=== PATIENT | male | born 1955 | race Caucasian/White ===

== ENCOUNTER 2016-04-24 21:17 | Emergency (ER) | payer MEDICARE, MEDICAID ==
[2016-04-24 21:41] VITALS: BP 128/88
[2016-04-24 22:20] LABS: HEMATOCRIT 40.1 % (40.0-52.0); HEMOGLOBIN 12.6 g/dL (14.0-18.0); MEAN CORPUSCULAR HEMOGLOBIN 29.5 pg (26.0-32.0); MEAN CORPUSCULAR HGB CONC 31.4 g/dL (32.0-36.0); MEAN CORPUSCULAR VOLUME 93.9 fL (78.0-93.0); RDW CV 14.3 % (10.0-15.0); RED BLOOD CELL COUNT 4.27 x10^6/uL (4.5-6.0)
[2016-04-24 22:29] LABS: BAND PERCENT MAN 1 % (0-6); EOSINOPHILS PERCENT MAN 1 % (0-4); SEG NEUTROPHILS PERCENT MAN 64 % (50-80); TOTAL CELLS COUNTED 100
[2016-04-24] MEDS ORDERED: Metoclopramide 10 MG/2 ML SDV IM ONE (23:06)
[2016-04-24] MEDS ORDERED: Ondansetron 4 MG Tab.DIS PO ONE (23:07)
--- NOTE | 2016-05-03 20:34 | ER ---
Date of Service: 04/24/2016 SUBJECTIVE: The patient presents to the emergency room via EMS. The patient is a resident at the [facility]. Staff stated that they went into his room and noticed a "spot of blood" on the front of patient's gown. They stated that the patient had not experienced any falls. They were concerned that he has a "bowel obstruction." They did assess him and stated that they did not hear any bowel sounds. The patient again did not experience any trauma to their knowledge. He is nonverbal due to severe dementia and was unable to relate any pertinent past Medical History. PAST MEDICAL HISTORY: 1. Closed head injury. 2. Dementia. 3. Quadriplegia. 4. Dysphagia. 5. Bipolar disorder. 6. Enuresis. 7. Anxiety disorder. 8. Urge incontinence. 9. Delusional disorders. 10.Scoliosis. 11.Unspecified hearing loss. 12.History of hyponatremia. 13.Schizoaffective disorder, bipolar type. MEDICATIONS: Please see MAR. ALLERGIES: Red food dye. REVIEW OF SYSTEMS: Unobtainable. PHYSICAL EXAMINATION: General: This is a 61-year-old male patient, who is in no acute distress. Vital Signs: Blood pressure is 128/88, respiratory rate is 20, O2 saturations 93%, temperature is 37.1. Skin: Warm, pink, and dry. HEENT: Head is normocephalic, atraumatic. He does have evidence of dried blood in his left naris consistent with epistaxis. It is not actively bleeding. Mouth, oral mucosa is moist. No evidence of any blood in the oropharynx. Neck: Supple without masses. There is no lymphadenopathy. Lungs: Clear to auscultation. Heart: Regular rate and rhythm. Abdomen: Obese and nontender. There are no masses noted. His bowel sounds are active. A fecal occult blood was performed and was negative. The patient did become somewhat nauseated after he had been moved around in the emergency room, but did not vomit. LABORATORY DATA: Fecal occult blood was performed and was negative. EMERGENCY ROOM COURSE: The patient was given Zofran 4 mg IV and Reglan 10 mg IV. He had no further vomiting and again was unable to recall if he had any nausea due to his history of head injury and dementia. ASSESSMENT: Epistaxis, resolved. PLAN: The patient was subsequently transferred back to the [facility]. They are to return if the patient develops any epistaxis that does not resolve, if he begins to vomit, if he develops any difficulties with breathing or other worrisome signs or symptoms. All questions were answered. MWK: 05/03/2016 15:01:38 MODL: 05/03/2016 20:29:37 /[id number]
== END 2016-04-24 23:20 ==
LOC: VM.ED 21:17
DX: R04.0 Epistaxis (principal)
CPT/HCPCS: 36415; 82272; 82274; 85025; 96372; 99285; A9270; J2765; 99283-GF

== ENCOUNTER 2016-06-26 13:55 | Inpatient (IN) | payer MEDICARE, MEDICAID ==
[2016-06-26] MEDS ORDERED: Piperacillin/Tazobactam 3.375 GM in Sodium Chloride 0.9% 100 ML IV SCH (14:15)
[2016-06-26] MEDS: Sodium Chloride 0.9% 1,000 ML IV SCH (15:50)
[2016-06-26] MEDS ORDERED: Calcium Carbonate 750 MG Tab.Chew PO PRN (16:29)
[2016-06-26] MEDS ORDERED: Acetaminophen 325 MG Tab PO PRN (16:29)
[2016-06-26] MEDS ORDERED: guaiFENesin 100 MG/5 ML Soln 10 ML UD Cup PO PRN (16:29)
[2016-06-26] MEDS ORDERED: Bisacodyl 5 MG Tab PO PRN (16:29)
[2016-06-26] MEDS: Piperacillin/Tazobactam 2.25 GM in Sodium Chloride 0.9% 100 ML IV SCH ×2 (16:30→22:02)
--- NOTE | 2016-06-26 16:44 | PCM.HP ---
H&P History of Present Illness - General Date of Service: 06/26/16 Admit Problem/Dx: Admission Diagnosis/Problem Admission Diagnosis/Problem Aspiration pneumonia Source of Information: [facility] records, Other (half-way staff) History Limitations: Reports: Altered mental status (patient cannot give any history) - History of Present Illness Initial Comments - Free Text/Narative: Mr. 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 He was hospitalized at the end of April for what was felt to be aspiration pneumonia versus UTI. snf staff with him today do not feel that he has ever gotten back to his baseline after that hospitalization and that he has actually become increasingly weak. He is having more difficulty holding his head up straight and they were concerned that he may have had a stroke. There has been no acute neurologic change that prompted this concern but, rather, it persists from his last hospitalization. He has long-standing dysarthria but this has been worse lately. He has not been eating and drinking as well as usual. Over the past couple days, he has developed a fever with T-max measured at 100.5. He has also appeared to be short of breath and has been requiring more oxygen during the day than usual. He always requires oxygen at night. He has not been noted to be coughing and has had no notable vomiting or diarrhea. He has chronic urinary incontinence with no acute changes. The patient is unable to participate in the history due to his history of TBI and dysarthria. - Related Data Allergies/Adverse Reactions: Allergies Allergy/AdvReac Type Severity Reaction Status Date / Time red dye Allergy Cannot Verified 06/26/16 15:16 Remember Home Medications: Home Meds Acetaminophen [Tylenol] 650 mg PO Q4H PRN 04/24/16 [History] Bisacodyl [Dulcolax] 5 mg PO DAILY PRN 04/24/16 [History] Divalproex Sodium 250 mg PO BID 04/24/16 [History] Divalproex Sodium 500 mg PO BID 04/24/16 [History] [place] Carbonate [Lithobid] 450 mg PO DAILY 04/24/16 [History] Oxybutynin 5 mg PO DAILY 04/24/16 [History] Propranolol HCl [Propranolol] 10 mg PO QID 04/24/16 [History] Calcium Carbonate [Tums] 1,000 mg PO QID PRN 05/18/16 [History] Multivit-Min/FA/Lycopene/Lut [Centrum Silver Tablet] 1 tab PO DAILY 05/18/16 [ History] Polyethylene Glycol 3350 [MiraLAX] 17 gm PO DAILY 05/18/16 [History] Terbinafine [LamISIL AT 1% Crm] 0.5 gm TOP BID PRN 05/18/16 [History] guaiFENesin [Adult Tussin Chest Congestion] 200 mg PO Q4HR PRN 05/18/16 [History ] OLANZapine [ZyPREXA] 5 mg PO BID 06/26/16 [History] Past Medical History HEENT History: Reports: Hard of hearing, Other (see below) Other HEENT History: Dysphagia Cardiovascular History: Reports: None Respiratory History: Reports: None Gastrointestinal History: Reports: Chronic constipation, Other (see below) Other Gastrointestinal History: dysphagia Genitourinary History: Reports: Urinary incontinence, UTI, recurrent Musculoskeletal History: Reports: Other (see below) Other Musculoskeletal History: Secondary Scoliosis, hx of falling, abnormal posture, disorder of bone unspecified Neurological History: Reports: Brain injury, Other (see below) Other Neuro History: Quadriplegia, Involuntay movements Psychiatric History: Reports: Anxiety, Bipolar, Mood swings, Schizophrenia, Other (see below) Other Psychiatric History: Delusional, Affective disorder, traumatic brain injury Endocrine/Metabolic History: Reports: Other (see below) Other Endocrine/Metabolic History: Hyponeutremia, Hypo-osmolality Hematologic History: Reports: None Immunologic History: Reports: None Oncologic (Cancer) History: Reports: None Dermatologic History: Reports: None - Past Surgical History Musculoskeletal Surgical History: Reports: Hip replacement Social & Family History - Family History Musculoskeletal: Reports: Osteoporosis Neurological: Reports: CVA - Tobacco Use Smoking Status *Q: Former Smoker Years of Tobacco use: 5 Used Tobacco, but Quit: Yes Month Tobacco Last Used: Unknown - Alcohol Use Alcohol Use History: No Alcohol Use in Last Twelve Months: No - Recreational Drug Use Recreational Drug Use: No - Living Situation & Occupation Living situation: Reports: single, extended care facility H&P Review of Systems - Review of Systems: Review Of Systems: Unable To Obtain (due to patient's inability to communicate. Filled out below based on information from [facility] staff.) General: Reports: fever, weakness, decreased appetite HEENT: Reports: no symptoms Pulmonary: Reports: shortness of breath. Denies: wheezing, cough Cardiovascular: Reports: no symptoms Gastrointestinal: Reports: No symptoms Genitourinary: Reports: no symptoms Musculoskeletal: Reports: no symptoms Skin: Reports: no symptoms Neurological: Reports: pre-existing deficit, weakness, change in speech Exam - Exam Exam: See Below - Vital Signs Vital Signs: Last Vital Signs Temp 36.8 C 06/26/16 14:13 Pulse 72 06/26/16 14:13 Resp 20 06/26/16 14:13 BP 132/67 06/26/16 14:13 Pulse Ox 97 06/26/16 14:13 Weight: 101.968 kg - Exam Quality Assessment: supplemental oxygen General: alert, cooperative, other (patient is much more alert upon arrival to the hospital than he was in clinic) HEENT: Conjunctiva clear, EOMI, Mucosa moist & pink, Pupils equal, Pupils reactive, TMs clear Neck: supple, trachea midline. No: lymphadenopathy Lungs: Normal respiratory effort (upon hospital arrival; did have periods of dyspnea while in clinic), Crackles (at the bases bilaterally (R>L)). No: Wheezing Cardiovascular: regular rate, regular rhythm, normal S1, normal S2. No: systolic murmur, diastolic murmur Abdomen: normal bowel sounds, soft. No: organomegaly, distention, tenderness Extremities: normal inspection, normal pulses, edema (trace to just above the ankles bilaterally) Skin: warm, dry, intact Neurological: strength equal bilateral, sensation intact Neuro Extensive - Motor, Sensory, Reflexes: CN II-XII intact, normal reflexes - Patient Data Lab Results last 24 hrs: Laboratory Results - last 24 hr 06/26/16 Range/Units 16:09 Urine Color Yellow (YELLOW) Urine Appearance Clear (CLEAR) Urine pH 7.0 (5.0-8.0) Ur Specific [place] 1.015 Urine Protein Negative (NEGATIVE) mg/dL Urine Glucose (UA) Negative (NEGATIVE) mg/dL Urine Ketones Negative (NEGATIVE) mg/dL Urine Occult Blood Trace-intact H (NEGATIVE) Urine Nitrite Negative (NEGATIVE) Urine Bilirubin Negative (NEGATIVE) Urine Urobilinogen 0.2 (0.2) EU/dL Ur Leukocyte Esterase Negative (NEGATIVE) *Q Meaningful Use (ADM) - VTE *Q VTE Criteria *Q: VTE Anticoagulation Contraindications: Med/tx not indicated/need - Stroke *Q Stroke Criteria *Q: - AMI *Q AMI Criteria *Q: Problem List Initiated/Reviewed/Updated: Yes Orders Last 24hrs: Active Orders 24 hr Category Date Time Status Admission Status [Patient Status] [ADT] Routine ADT 06/26/16 13:56 Active Intake and Output [RC] 06,18 Care 06/26/16 14:13 Active Notify Provider Vital Signs [RC] 02,06,10,14,18,22 Care 06/26/16 14:13 Active Oxygen Therapy [RC] 08,20 Care 06/26/16 14:13 Active Pulse Oximetry [RC] 02,06,10,14,18,22 Care 06/26/16 14:13 Active Up With Assistance [RC] 08,20 Care 06/26/16 14:12 Active VTE/DVT Education [RC] .PRN Care 06/26/16 14:13 Active Vital Signs [RC] 02,06,10,14,18,22 Care 06/26/16 14:13 Active Nothing per Oral Now Diet [DIET] Diet 06/26/16 Dinner Active BASIC METABOLIC PANEL,BMP [CHEM] Routine Lab 06/27/16 05:11 Ordered CBC WITH AUTO DIFF [HEME] Routine Lab 06/27/16 05:11 Ordered CULTURE MRSA SURVEY [RM] Routine Lab 06/26/16 15:05 Received URINALYSIS W/MICROSCOPIC [UA W/MICROSCOPIC] [URIN] Stat Lab 06/26/16 16:09 Results Acetaminophen [Tylenol] Med 06/26/16 16:29 Ordered 650 mg PO Q4H PRN Bisacodyl [Dulcolax] Med 06/26/16 16:29 Ordered 5 mg PO DAILY PRN Calcium Carbonate [Tums] Med 06/26/16 16:29 Ordered 1,000 mg PO QID PRN Divalproex Sodium Med 06/26/16 20:00 Ordered 250 mg PO BID Divalproex Sodium Med 06/26/16 20:00 Ordered 500 mg PO BID [place] Carbonate [Lithobid] Med 06/27/16 08:00 Ordered 450 mg PO DAILY Multivit-Min/FA/Lycopene/Lut [Centrum Silver Tablet] Med 06/27/16 08:00 Ordered 1 tab PO DAILY OLANZapine [ZyPREXA] Med 06/26/16 20:00 Ordered 5 mg PO BID Piperacillin/Tazobactam [Zosyn] 2.25 gm Med 06/26/16 16:15 Active Sodium Chloride 0.9% [Normal Saline] 100 ml IV Q6H Polyethylene Glycol 3350 [MiraLAX] Med 06/27/16 08:00 Ordered 17 gm PO DAILY Propranolol HCl [Propranolol] Med 06/26/16 20:00 Ordered 10 mg PO QID Sodium Chloride 0.9% [Normal Saline] 1,000 ml Med 06/26/16 15:00 Active IV ASDIRECTED Sodium Chloride 0.9% [Saline Flush] Med 06/26/16 14:12 Active 10 ml FLUSH ASDIRECTED PRN guaiFENesin [Robitussin] Med 06/26/16 16:29 Ordered 200 mg PO Q4HR PRN Anticoagulation Contraindications VTE [AST] Per Unit Oth 06/26/16 14:12 Ordered Routine Peripheral IV Insertion Adult [OM.PC] Routine Oth 06/26/16 14:12 Ordered Resuscitation Status Routine Resus Stat 06/26/16 14:12 Ordered Medication Orders Acetaminophen (Tylenol) 650 mg PO Q4H PRN PRN Reason: Pain/Fever Bisacodyl (Dulcolax) 5 mg PO DAILY PRN PRN Reason: Constipation Divalproex Sodium (Divalproex Sodium) 250 mg PO BID JL Guaifenesin (Robitussin) 200 mg PO Q4HR PRN PRN Reason: Cough Sodium Chloride (Normal Saline) 1,000 mls @ 100 mls/hr IV ASDIRECTED JL Last Admin: 06/26/16 15:50 Dose: 100 mls/hr Piperacillin Sod/Tazobactam (Sod 2.25 gm/ Sodium Chloride) 100 mls @ 200 mls/ hr IV Q6H JL Last Admin: 06/26/16 16:30 Dose: 200 mls/hr [place] Carbonate (Lithobid) 450 mg PO DAILY JL Non-Formulary Medication (Calcium Carbonate [Tums]) 1,000 mg PO QID PRN PRN Reason: Heartburn Non-Formulary Medication (Divalproex Sodium) 500 mg PO BID JL Non-Formulary Medication (Multivit-Min/Fa/Lycopene/Lut [Centrum Silver Tablet]) 1 tab PO DAILY JL Non-Formulary Medication (Propranolol Hcl [Propranolol]) 10 mg PO QID JL Olanzapine (Zyprexa) 5 mg PO BID JL Polyethylene Glycol (Miralax) 17 gm PO DAILY JL Sodium Chloride (Saline Flush) 10 ml FLUSH ASDIRECTED PRN PRN Reason: Keep Vein Open Assessment/Plan Comment:: 1. Acute Kidney Injury 2. Dehydration 3. Hypercalcemia, likely secondary to #1 and #2 - KALYAN is presumed to be prerenal, although his BUN: Creatinine ratio does not suggest this. He does not have any history to suggest a post renal or obstructive etiology nor any history to suggest intrinsic renal etiology. He does take lithium and this could potentially cause an elevated creatinine but he has not had any recent dose adjustments to explain this. He is not on any KANU inhibitor or NSAIDs. - We'll give gentle IV fluids overnight. - We will bladder scan after one of his voids. - Hold oxybutynin in case he is having any urinary retention contributing to his KALYAN. - Recheck creatinine in the morning. Will also get a lithium level with morning labs. - If this is not improving, we will consider a renal ultrasound on 06/28 when they are here as well as getting in some urine electrolytes. 4. Aspiration Pneumonitis - This is likely the cause of his fever and shortness of breath. An influenza swab in clinic was negative. He does not have any other signs or symptoms of other infection. A urinalysis was obtained to exclude UTI and this was negative. - He is afebrile here. - I did go ahead and start Zosyn due to fairly ill appearance in clinic. However, the patient has perked up without much intervention after being transitioned to the hospital; therefore, I am not sure whether he will need a full course of antibiotics. We will continue these overnight and reassess in the morning to see if they can be discontinued at that time. - His most recent swallow study did show that he continues to aspirate and that he did better with teaspoon amounts of food and liquids at a time. It is unclear if this is what the care center has been doing. We'll repeat a swallow test tomorrow morning. 5. Hypoxia - Likely positional versus contribution from #3 above. A BNP was negative. I did not obtain a d-dimer given dramatic improvement in oxygen levels simply with position change and a minimal amount of oxygen, which makes PE highly unlikely. - We'll continue to wean oxygen as able. 6. Generalized weakness - Likely related to numbers 1 through 3 as above. Certainly some aspiration component could be contributing as well as his positional hypoxia. Other causes excluded with other laboratory testing in clinic. Thyroid disease is considered given he is on lithium. Supratherapeutic drug levels are also considered and we will monitor these with a.m. labs tomorrow. Consider intracranial cause but his exam and symptoms are nonfocal. - At this point, we will treat the above problems as noted. - Will do a CT head once he is stabilized. - We'll consider PT and OT consult to see what we can do to optimize positioning and mobility at the half-way. 7. Schizoaffective disorder, bipolar type 8. Traumatic brain injury 9. Spastic quadriparesis - Continue lithium, depakote, and zyprexa. - As above, check drug levels for lithium and depakote with am labs. 10. Abnormal involuntary movements - Continue propranolol. Fluids: IV normal saline @ 100 cc/hr overnight Diet: NPO until swallow evaluation DVT Prophylaxis: None - will consider starting tomorrow once head CT obtained
[2016-06-26] MEDS ORDERED: DIVALPROEX SODIUM 500 MG PO SCH (20:00)
[2016-06-26] MEDS: Divalproex Sodium Delayed-Release 250 MG Tab.CR PO SCH (20:33)
[2016-06-26] MEDS: Propranolol 20 MG Tab PO SCH (20:34)
[2016-06-26] MEDS: OLANZapine 5 MG Tab PO SCH (20:34)
[2016-06-27] MEDS: Sodium Chloride 0.9% 1,000 ML IV SCH ×4 (04:12→14:59)
[2016-06-27] MEDS: Piperacillin/Tazobactam 2.25 GM in Sodium Chloride 0.9% 100 ML IV SCH (04:31)
[2016-06-27] MEDS ORDERED: Multivitamins with Iron/Calcium/Folic Acid/Minerals Tab PO SCH (08:00)
--- NOTE | 2016-06-27 08:23 | PCM.PN ---
- General Info Date of Service: 06/27/16 Subjective Update: No overnight events. Patient states he feels fine this morning and is just wondering when he can eat breakfast. He has no other concerns. - Review of Systems General: Reports: no symptoms HEENT: Reports: no symptoms Pulmonary: Reports: no symptoms Cardiovascular: Reports: no symptoms Gastrointestinal: Reports: No symptoms Genitourinary: Reports: no symptoms Skin: Reports: no symptoms Neurological: Reports: weakness - Patient Data Vitals - most recent: Last Vital Signs Temp 36.3 C 06/27/16 05:46 Pulse 66 06/27/16 05:46 Resp 20 06/27/16 05:46 BP 121/88 06/27/16 05:46 Pulse Ox 94 L 06/27/16 07:21 Weight - most recent: 101.968 kg I&O - last 24 hours: Intake & Output 06/26/16 06/27/16 06/27/16 22:59 06:59 14:59 Intake Total 350 1204 Output Total 250 Balance 350 954 Lab Results last 24 hrs: Laboratory Results - last 24 hr 06/26/16 06/27/16 06/27/16 Range/Units 16:09 06:30 06:30 WBC 8.2 (4.0-10.0) x10^3/uL RBC 3.83 L (4.5-6.0) x10^6/uL Hgb 11.7 L (14.0-18.0) g/dL Hct 38.5 L (40.0-52.0) % MCV 100.5 H (78.0-93.0) fL MCH 30.5 (26.0-32.0) pg MCHC 30.4 L (32.0-36.0) g/dL RDW Coeff of Karyn 16.6 H (10.0-15.0) % Plt Count 231 (130-400) x10^3/uL Add Manual Diff Yes Neutrophils % (Manual) 57 (50-80) % Band Neutrophils % 7 H (0-6) % Lymphocytes % (Manual) 34 (25-50) % Eosinophils % (Manual) 2 (0-4) % Platelet Estimate Adequate Sodium 142 (136-145) mmol/L Potassium 4.7 (3.5-5.1) mmol/L Chloride 111 H (98-107) mmol/L Carbon Dioxide 36 H (21-32) mmol/L BUN 28 H (7-18) mg/dL Creatinine 1.9 H (0.70-1.30) mg/dL Est Cr Clr Drug Dosing 35.91 mL/min Estimated GFR (MDRD) 36 Glucose 102 (74-106) mg/dL Calcium 9.5 (8.5-10.1) mg/dL TSH, Ultra Sensitive 5.327 H (0.358-3.74) uIU/mL Urine Color Yellow (YELLOW) Urine Appearance Clear (CLEAR) Urine pH 7.0 (5.0-8.0) Ur Specific [place] 1.015 Urine Protein Negative (NEGATIVE) mg/dL Urine Glucose (UA) Negative (NEGATIVE) mg/dL Urine Ketones Negative (NEGATIVE) mg/dL Urine Occult Blood Trace-intact H (NEGATIVE) Urine Nitrite Negative (NEGATIVE) Urine Bilirubin Negative (NEGATIVE) Urine Urobilinogen 0.2 (0.2) EU/dL Ur Leukocyte Esterase Negative (NEGATIVE) Urine RBC 0-5 (NOT SEEN) /HPF Urine WBC 0-5 (NOT SEEN) /HPF Ur Squamous Epith Cells Not seen (NEGATIVE) /HPF Urine Bacteria Rare (NEGATIVE) /HPF Urine Mucus Rare H (NEGATIVE) /LPF Med Orders - Current: Current Medications Acetaminophen (Tylenol) 650 mg PO Q4H PRN PRN Reason: Pain/Fever Bisacodyl (Dulcolax) 5 mg PO DAILY PRN PRN Reason: Constipation Divalproex Sodium (Divalproex Sodium) 750 mg PO BID [facility] Last Admin: 06/26/16 20:33 Dose: 750 mg Sodium Chloride (Normal Saline) 1,000 mls @ 100 mls/hr IV ASDIRECTED [facility] [place] Carbonate (Eskalith Cr) 450 mg PO DAILY [facility] Multivitamins/Minerals (Thera M Plus) 1 tab PO DAILY [facility] Olanzapine (Zyprexa) 5 mg PO BID [facility] Last Admin: 06/26/16 20:34 Dose: 5 mg Polyethylene Glycol (Miralax) 17 gm PO DAILY [facility] Propranolol HCl (Inderal) 10 mg PO QID [facility] Last Admin: 06/26/16 20:34 Dose: 10 mg Sodium Chloride (Saline Flush) 10 ml FLUSH ASDIRECTED PRN PRN Reason: Keep Vein Open Discontinued Medications Calcium Carbonate/Glycine (Tums Extra Strength) 750 mg PO QID PRN PRN Reason: Heartburn Guaifenesin (Robitussin) 200 mg PO Q4HR PRN PRN Reason: Cough Piperacillin Sod/Tazobactam (Sod 3.375 gm/ Sodium Chloride) 100 mls @ 200 mls/ hr IV Q6H [facility] Last Admin: 06/26/16 15:36 Dose: Not Given Sodium Chloride (Normal Saline) 1,000 mls @ 100 mls/hr IV ASDIRECTED [facility] Last Admin: 06/27/16 04:13 Dose: 100 mls/hr Piperacillin Sod/Tazobactam (Sod 2.25 gm/ Sodium Chloride) 100 mls @ 200 mls/ hr IV Q6H [facility] Last Admin: 06/27/16 04:31 Dose: 200 mls/hr Non-Formulary Medication (Divalproex Sodium) 500 mg PO BID [facility] - Exam General: alert, cooperative, no acute distress HEENT: Pupils equal, Pupils reactive, Mucous membr. moist/pink Neck: supple, trachea midline. No: lymphadenopathy Lungs: Normal respiratory effort, Crackles (at the bases bilaterally but patient unable to cooperate with exam) Cardiovascular: regular rate, regular rhythm, no murmurs Abdomen: bowel sounds present, soft, no tenderness, no distension Extremities: no edema, normal pulses Skin: warm, dry, intact Neurological: no new focal deficit - Problem List & Annotations (1) Acute kidney injury SNOMED Code(s): 43232381 Code(s): N17.9 - ACUTE KIDNEY FAILURE, UNSPECIFIED Status: Acute Current Visit: Yes (2) Dehydration SNOMED Code(s): 85847407 Code(s): E86.0 - DEHYDRATION Status: Resolved Current Visit: Yes (3) Hypercalcemia SNOMED Code(s): 60291724 Code(s): E83.52 - HYPERCALCEMIA Status: Resolved Current Visit: Yes (4) Hypoxia SNOMED Code(s): 634632769, 019638573 Code(s): R09.02 - HYPOXEMIA Status: Chronic Current Visit: Yes (5) Aspiration pneumonitis SNOMED Code(s): 327767545 Code(s): J69.0 - PNEUMONITIS DUE TO INHALATION OF FOOD AND VOMIT Status: Acute Current Visit: Yes (6) Generalized weakness SNOMED Code(s): 70566845 Code(s): R53.1 - WEAKNESS Status: Chronic Current Visit: Yes (7) Traumatic brain injury SNOMED Code(s): 990565992, 799858080 Code(s): S06.9X9A - UNSP INTRACRANIAL INJURY W LOC OF UNSP DURATION, INIT Status: Chronic Current Visit: Yes Qualifiers: Encounter type: sequela Loss of consciousness presence/duration: with LOC of unspecified duration Qualified Code(s): S06.9X9S - Unspecified intracranial injury with loss of consciousness of unspecified duration, sequela (8) Schizoaffective disorder SNOMED Code(s): 64792214 Code(s): F25.9 - SCHIZOAFFECTIVE DISORDER, UNSPECIFIED Status: Chronic Current Visit: Yes (9) Involuntary movements SNOMED Code(s): 374733160 Code(s): R25.2 - CRAMP AND SPASM Status: Chronic Current Visit: Yes (10) Quadriplegia SNOMED Code(s): 71554790 Code(s): G82.50 - QUADRIPLEGIA, UNSPECIFIED Status: Chronic Current Visit : Yes (11) Anemia SNOMED Code(s): 889482083 Code(s): D64.9 - ANEMIA, UNSPECIFIED Status: Acute Current Visit: Yes Qualifiers: Anemia type: unspecified type Qualified Code(s): D64.9 - Anemia, unspecified - Problem List Review Problem List Initiated/Reviewed/Updated: Yes - My Orders Last 24 Hours: My Active Orders 06/26/16 13:56 Admission Status [Patient Status] [ADT] Routine 06/26/16 14:12 Up With Assistance [RC] 08,20 Sodium Chloride 0.9% [Saline Flush] 10 ml FLUSH ASDIRECTED PRN Anticoagulation Contraindications VTE [AST] Per Unit Routine Peripheral IV Insertion Adult [OM.PC] Routine Resuscitation Status Routine 06/26/16 14:13 Intake and Output [RC] 06,18 Notify Provider Vital Signs [RC] .PRN Oxygen Therapy [RC] 08,20 Pulse Oximetry [RC] 02,06,10,14,18,22 VTE/DVT Education [RC] .PRN Vital Signs [RC] 02,06,10,14,18,22 06/26/16 15:05 CULTURE MRSA SURVEY [RM] Routine 06/26/16 16:29 Acetaminophen [Tylenol] 650 mg PO Q4H PRN Bisacodyl [Dulcolax] 5 mg PO DAILY PRN 06/26/16 17:48 Consult to Speech Language Pathology [FIRE CONTROL TECHNICIAN G Evaluation and Treatment] [CONS] Routine 06/26/16 20:00 Divalproex Sodium 750 mg PO BID OLANZapine [ZyPREXA] 5 mg PO BID Propranolol [Inderal] 10 mg PO QID 06/26/16 Dinner Nothing per Oral Now Diet [DIET] 06/27/16 06:30 LITHIUM [REF] Routine VALPROIC ACID [REF] Routine 06/27/16 08:00 Head wo Cont [CT] Routine [place] Carbonate [Eskalith CR] 450 mg PO DAILY Multivitamins w-Iron/Ca/FA/Min [Thera M Plus] 1 tab PO DAILY Polyethylene Glycol 3350 [MiraLAX] 17 gm PO DAILY 06/27/16 08:13 OT Evaluation and Treatment [CONS] Routine PT Evaluation and Treatment [CONS] Routine 06/27/16 08:14 Renal Comp [US] Routine 06/27/16 08:15 Sodium Chloride 0.9% [Normal Saline] 1,000 ml IV ASDIRECTED - Assessment Assessment:: 61 yo male admitted with KALYAN and presumed aspiration pneumonitis after presenting to clinic with increasing generalized weakness and fever. Doing much better this morning. He offers no complaints except for wanting to eat breakfast. - Plan Plan:: 1. Acute Kidney Injury 2. Dehydration, resolved 3. Hypercalcemia, likely secondary to #1 and #2, resolved - Creatinine is up further. - Concern now for more intrarenal cause given lack of response to IV hydration. Potentially interstitial nephritis from the zosyn. [place]affe[place] is also a potential offender. Also consider underlying renal disease. Obstructive is also considered based on his known neurogenic bladder. - Unable to bladder scan as he is incontinent. Would prefer to place a urinary catheter to monitor his I/O more accurately but concern is that the patient will pull this out. Alternative option is scheduled in and out catheterizations. Nursing will assess the patient today and determine which they think would be best for him. - Continue gentle IV fluids today. - Hold oxybutynin in case he is having any urinary retention contributing to his KALYAN. - Mahaffey level is pending. - Will get urine electrolytes on urine from yesterday. Will plan for a renal ultrasound tomorrow. - Recheck creatinine this afternoon. 4. Anemia, NOS - Hemoglobin has dropped 2 grams from yesterday, which is much more than expected for simple hemodilution. All cell lines are down today. - No evidence of bleeding from anywhere. - Will recheck this pm to ensure stability. 5. Aspiration Pneumonitis - Presumed to be the cause of his fever and shortness of breath . - His symptoms have rapidly resolved, which argues against a bacterial infection. - Will discontinue Zosyn at this time and observe over the next 24 hours. - Swallow study to be done this morning. 6. Hypoxia - Stable on 2 L of oxygen. Likely significant component of positional etiology versus contribution from #3 above. - Will have PT and OT see him to see what we can do with his positioning to alleviate this. - We'll continue to wean oxygen as able. 7. Generalized weakness - Likely related to numbers 1 through 3 as above. Certainly some aspiration component could be contributing as well as his positional hypoxia. - TSH only mildly elevated today. Drug levels are pending. - Will do a CT head today - this is nonemergent in the absence of focal neurologic deficits. - PT and OT consult to see what we can do to optimize positioning and mobility at the group home. 8. Schizoaffective disorder, bipolar type 9. 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 - As above, drug levels for lithium and depakote are pending. 11. Abnormal involuntary movements - Continue propranolol. Fluids: IV normal saline @ 100 cc/hr today Diet: NPO until swallow evaluation - then diet as per speech therapist DVT Prophylaxis: None - will consider starting later today once head CT obtained and ensurance of stable hemoglobin
[2016-06-27] MEDS: Polyethylene Glycol 3350 Powder 17 GM Packet PO SCH (08:33)
[2016-06-27] MEDS: Propranolol 20 MG Tab PO SCH ×4 (08:33→21:26)
[2016-06-27] MEDS: Divalproex Sodium Delayed-Release 250 MG Tab.CR PO SCH ×2 (08:33→21:26)
[2016-06-27] MEDS: OLANZapine 5 MG Tab PO SCH ×2 (08:34→21:26)
[2016-06-27] MEDS: Lithium Carbonate 450 MG Tab.ER PO SCH (08:35)
--- NOTE | 2016-06-27 16:44 | PCM.SN ---
- Free Text/Narrative Note: Spoke with patient's sisters to update them on his status. He is doing quite well this afternoon. Recheck creatinine is down a bit. Electrolyte abnormalities and decrease in hemoglobin also noted. Will d/c IV fluids and let him drink ad christa. Recheck labs in the am. Will continue to hold off on pharmacologic VTE prophylaxis given continually downtrending hemoglobin. No indication for SCDs as he is at his baseline functional status. My hope is that he will be able to be discharged tomorrow to have his renal u/s outpatient as we do not currently have this service available in the hospital. As long as his creatinine is stable, I think this would be acceptable and he can continue to have this worked up as an outpatient.
[2016-06-27] MEDS: Sodium Chloride 0.9% 10 ML Syringe FLUSH PRN (21:29)
[2016-06-28] MEDS: Propranolol 20 MG Tab PO SCH ×4 (07:59→21:31)
[2016-06-28] MEDS: Polyethylene Glycol 3350 Powder 17 GM Packet PO SCH (07:59)
[2016-06-28] MEDS: Divalproex Sodium Delayed-Release 250 MG Tab.CR PO SCH ×2 (08:00→21:30)
[2016-06-28] MEDS: OLANZapine 5 MG Tab PO SCH ×2 (08:00→21:31)
[2016-06-28] MEDS: Lithium Carbonate 450 MG Tab.ER PO SCH (08:01)
[2016-06-28] MEDS ORDERED: Heparin Sodium 5,000 Units/ML Vial SUBCUT SCH (09:00)
--- NOTE | 2016-06-28 09:00 | PCM.PN ---
- General Info Date of Service: 06/28/16 Subjective Update: No overnight events. Has been weaned off daytime oxygen. Nursing staff notes significant contribution of his positioning to his low oxygen saturations. - Review of Systems General: Reports: no symptoms HEENT: Reports: no symptoms Pulmonary: Reports: no symptoms Cardiovascular: Reports: no symptoms Gastrointestinal: Reports: No symptoms Genitourinary: Reports: no symptoms Musculoskeletal: Reports: no symptoms Skin: Reports: no symptoms - Patient Data Vitals - most recent: Last Vital Signs Temp 36.9 C 06/28/16 06:00 Pulse 71 06/28/16 06:00 Resp 20 06/28/16 06:00 BP 134/75 06/28/16 06:00 Pulse Ox 95 06/28/16 07:46 Weight - most recent: 101.968 kg I&O - last 24 hours: Intake & Output 06/27/16 06/28/16 06/28/16 22:59 06:59 14:59 Intake Total 2595 120 Output Total 1000 400 200 Balance 1595 -400 -80 Lab Results last 24 hrs: Laboratory Results - last 24 hr 06/26/16 06/26/16 06/27/16 Range/Units 16:09 16:09 06:30 WBC (4.0-10.0) x10^3/uL RBC (4.5-6.0) x10^6/uL Hgb (14.0-18.0) g/dL Hct (40.0-52.0) % MCV (78.0-93.0) fL MCH (26.0-32.0) pg MCHC (32.0-36.0) g/dL RDW Coeff of Karyn (10.0-15.0) % Plt Count (130-400) x10^3/uL Add Manual Diff Neutrophils % (Manual) (50-80) % Band Neutrophils % (0-6) % Lymphocytes % (Manual) (25-50) % Monocytes % (Manual) (2-11) % Metamyelocytes % (0) % Toxic Granulation Platelet Estimate Anisocytosis Macrocytosis Stomatocytes Rouleaux Sodium (136-145) mmol/L Potassium (3.5-5.1) mmol/L Chloride (98-107) mmol/L Carbon Dioxide (21-32) mmol/L BUN (7-18) mg/dL Creatinine (0.70-1.30) mg/dL Est Cr Clr Drug Dosing mL/min Estimated GFR (MDRD) Glucose (74-106) mg/dL Calcium (8.5-10.1) mg/dL Urine Total Volume Random Random Ur Creatinine 24 Hour Not Reportable Ur Creatinine Concen 63 mg/dL Ur Sodium 24 Hour Not Reportable U Sodium Concentration 67 mEq/L Valproic Acid 73 (50-100) ug/mL [place] (0.60-1.20) mEq/L 06/27/16 06/27/16 06/27/16 Range/Units 06:30 15:39 15:39 WBC (4.0-10.0) x10^3/uL RBC (4.5-6.0) x10^6/uL Hgb 10.9 L (14.0-18.0) g/dL Hct (40.0-52.0) % MCV (78.0-93.0) fL MCH (26.0-32.0) pg MCHC (32.0-36.0) g/dL RDW Coeff of Karyn (10.0-15.0) % Plt Count (130-400) x10^3/uL Add Manual Diff Neutrophils % (Manual) (50-80) % Band Neutrophils % (0-6) % Lymphocytes % (Manual) (25-50) % Monocytes % (Manual) (2-11) % Metamyelocytes % (0) % Toxic Granulation Platelet Estimate Anisocytosis Macrocytosis Stomatocytes Rouleaux Sodium 153 H (136-145) mmol/L Potassium 4.9 (3.5-5.1) mmol/L Chloride 115 H (98-107) mmol/L Carbon Dioxide 36 H (21-32) mmol/L BUN 22 H (7-18) mg/dL Creatinine 1.7 H (0.70-1.30) mg/dL Est Cr Clr Drug Dosing 40.14 mL/min Estimated GFR (MDRD) 41 Glucose 117 H (74-106) mg/dL Calcium 8.8 (8.5-10.1) mg/dL Urine Total Volume Ur Creatinine 24 Hour Ur Creatinine Concen mg/dL Ur Sodium 24 Hour U Sodium Concentration mEq/L Valproic Acid (50-100) ug/mL [place] 0.61 (0.60-1.20) mEq/L 06/28/16 06/28/16 Range/Units 08:19 08:19 WBC 7.1 (4.0-10.0) x10^3/uL RBC 4.11 L (4.5-6.0) x10^6/uL Hgb 12.3 L (14.0-18.0) g/dL Hct 42.6 (40.0-52.0) % MCV 103.6 H (78.0-93.0) fL MCH 29.9 (26.0-32.0) pg MCHC 28.9 L (32.0-36.0) g/dL RDW Coeff of Karyn 16.6 H (10.0-15.0) % Plt Count 223 (130-400) x10^3/uL Add Manual Diff Yes Neutrophils % (Manual) 63 (50-80) % Band Neutrophils % 2 (0-6) % Lymphocytes % (Manual) 23 L (25-50) % Monocytes % (Manual) 11 (2-11) % Metamyelocytes % 1 H (0) % Toxic Granulation 2+ moderate H Platelet Estimate Adequate Anisocytosis 1+ slight H Macrocytosis 1+ slight H Stomatocytes 1+ slight H Rouleaux 1+ slight H Sodium 153 H (136-145) mmol/L Potassium 5.2 H (3.5-5.1) mmol/L Chloride 115 H (98-107) mmol/L Carbon Dioxide 37 H (21-32) mmol/L BUN 23 H (7-18) mg/dL Creatinine 1.7 H (0.70-1.30) mg/dL Est Cr Clr Drug Dosing 40.14 mL/min Estimated GFR (MDRD) 41 Glucose 107 H (74-106) mg/dL Calcium 10.1 (8.5-10.1) mg/dL Urine Total Volume Ur Creatinine 24 Hour Ur Creatinine Concen mg/dL Ur Sodium 24 Hour U Sodium Concentration mEq/L Valproic Acid (50-100) ug/mL [place] (0.60-1.20) mEq/L Bjorn Results last 24 hrs: Microbiology 06/26/16 15:05 MRSA Surveillance Culture - Final Nares, Unspecified NO MRSA ISOLATED Med Orders - Current: Current Medications Acetaminophen (Tylenol) 650 mg PO Q4H PRN PRN Reason: Pain/Fever Bisacodyl (Dulcolax) 5 mg PO DAILY PRN PRN Reason: Constipation Last Admin: 06/28/16 07:59 Dose: 5 mg Divalproex Sodium (Divalproex Sodium) 750 mg PO BID [facility] Last Admin: 06/28/16 08:00 Dose: 750 mg Heparin Sodium (Porcine) (Heparin Sodium) 5,000 units SUBCUT Q8H [facility] [place] Carbonate (Eskalith Cr) 450 mg PO DAILY [facility] Last Admin: 06/28/16 08:01 Dose: 450 mg Multivitamins/Minerals (Thera M Plus) 1 tab PO DAILY [facility] Olanzapine (Zyprexa) 5 mg PO BID [facility] Last Admin: 06/28/16 08:00 Dose: 5 mg Polyethylene Glycol (Miralax) 17 gm PO DAILY [facility] Last Admin: 06/28/16 07:59 Dose: 17 gm Propranolol HCl (Inderal) 10 mg PO QID [facility] Last Admin: 06/28/16 07:59 Dose: 10 mg Sodium Chloride (Saline Flush) 10 ml FLUSH ASDIRECTED PRN PRN Reason: Keep Vein Open Last Admin: 06/27/16 21:29 Dose: 10 ml Discontinued Medications Calcium Carbonate/Glycine (Tums Extra Strength) 750 mg PO QID PRN PRN Reason: Heartburn Guaifenesin (Robitussin) 200 mg PO Q4HR PRN PRN Reason: Cough Piperacillin Sod/Tazobactam (Sod 3.375 gm/ Sodium Chloride) 100 mls @ 200 mls/ hr IV Q6H [facility] Last Admin: 06/26/16 15:36 Dose: Not Given Sodium Chloride (Normal Saline) 1,000 mls @ 100 mls/hr IV ASDIRECTED [facility] Last Admin: 06/27/16 04:13 Dose: 100 mls/hr Piperacillin Sod/Tazobactam (Sod 2.25 gm/ Sodium Chloride) 100 mls @ 200 mls/ hr IV Q6H [facility] Last Admin: 06/27/16 04:31 Dose: 200 mls/hr Sodium Chloride (Normal Saline) 1,000 mls @ 100 mls/hr IV ASDIRECTED [facility] Last Admin: 06/27/16 14:59 Dose: 100 mls/hr Non-Formulary Medication (Divalproex Sodium) 500 mg PO BID [facility] - Exam General: alert, no acute distress HEENT: Pupils equal, Pupils reactive, Mucous membr. moist/pink Neck: supple, trachea midline. No: lymphadenopathy Lungs: Clear to auscultation, Normal respiratory effort Cardiovascular: regular rate, regular rhythm, no murmurs Abdomen: bowel sounds present, soft, no tenderness, no distension Extremities: no edema, normal pulses Skin: warm, dry, intact - Problem List & Annotations (1) Acute kidney injury SNOMED Code(s): 74105504 Code(s): N17.9 - ACUTE KIDNEY FAILURE, UNSPECIFIED Status: Acute Current Visit: Yes (2) Dehydration SNOMED Code(s): 66300479 Code(s): E86.0 - DEHYDRATION Status: Resolved Current Visit: Yes (3) Hypercalcemia SNOMED Code(s): 25131567 Code(s): E83.52 - HYPERCALCEMIA Status: Resolved Current Visit: Yes (4) Hypoxia SNOMED Code(s): 900628236, 859041662 Code(s): R09.02 - HYPOXEMIA Status: Resolved Current Visit: Yes (5) Aspiration pneumonitis SNOMED Code(s): 968976180 Code(s): J69.0 - PNEUMONITIS DUE TO INHALATION OF FOOD AND VOMIT Status: Resolved Current Visit: Yes (6) Generalized weakness SNOMED Code(s): 20564687 Code(s): R53.1 - WEAKNESS Status: Chronic Current Visit: Yes (7) Traumatic brain injury SNOMED Code(s): 923754569, 210932659 Code(s): S06.9X9A - UNSP INTRACRANIAL INJURY W LOC OF UNSP DURATION, INIT Status: Chronic Current Visit: Yes Qualifiers: Encounter type: sequela Loss of consciousness presence/duration: with LOC of unspecified duration Qualified Code(s): S06.9X9S - Unspecified intracranial injury with loss of consciousness of unspecified duration, sequela (8) Schizoaffective disorder SNOMED Code(s): 32209393 Code(s): F25.9 - SCHIZOAFFECTIVE DISORDER, UNSPECIFIED Status: Chronic Current Visit: Yes (9) Involuntary movements SNOMED Code(s): 337226965 Code(s): R25.2 - CRAMP AND SPASM Status: Chronic Current Visit: Yes (10) Quadriplegia SNOMED Code(s): 22176883 Code(s): G82.50 - QUADRIPLEGIA, UNSPECIFIED Status: Chronic Current Visit : Yes (11) Anemia SNOMED Code(s): 231583552 Code(s): D64.9 - ANEMIA, UNSPECIFIED Status: Acute Current Visit: Yes Qualifiers: Anemia type: unspecified type Qualified Code(s): D64.9 - Anemia, unspecified - Problem List Review Problem List Initiated/Reviewed/Updated: Yes - My Orders Last 24 Hours: My Active Orders 06/27/16 08:00 Head wo Cont [CT] Routine [place] Carbonate [Eskalith CR] 450 mg PO DAILY Multivitamins w-Iron/Ca/FA/Min [Thera M Plus] 1 tab PO DAILY Polyethylene Glycol 3350 [MiraLAX] 17 gm PO DAILY 06/27/16 08:13 OT Evaluation and Treatment [CONS] Routine PT Evaluation and Treatment [CONS] Routine 06/27/16 11:45 Bladder Scan [RC] .PRN 06/27/16 Lunch Mechanical Soft Diet [DIET] Thickened Liquids [DIET] 06/28/16 09:00 Heparin Sodium 5,000 units SUBCUT Q8H 06/29/16 07:00 CBC W/O DIFF,HEMOGRAM [HEME] Q3D 07/02/16 07:00 CBC W/O DIFF,HEMOGRAM [HEME] Q3D 07/05/16 07:00 CBC W/O DIFF,HEMOGRAM [HEME] Q3D 07/08/16 07:00 CBC W/O DIFF,HEMOGRAM [HEME] Q3D 07/11/16 07:00 CBC W/O DIFF,HEMOGRAM [HEME] Q3D 07/14/16 07:00 CBC W/O DIFF,HEMOGRAM [HEME] Q3D 07/17/16 07:00 CBC W/O DIFF,HEMOGRAM [HEME] Q3D - Assessment Assessment:: 61 yo male admitted with KALYAN and presumed aspiration pneumonitis after presenting to clinic with increasing generalized weakness and fever. No fever since admission and he has been weaned off daytime oxygen. He offers no complaints. - Plan Plan:: 1. Acute Kidney Injury 2. Dehydration, resolved 3. Hypercalcemia, likely secondary to #1 and #2, resolved - Creatinine is down slightly today but his sodium and potassium are up. - FeNa is consistent with an intrinsic renal cause given it is >1%. His u/a was completely negative for casts, RBCs, WBCs, or protein. Therefore, the picture is not entirely clear. His lithium level is normal. - Obstruction was essentially excluded yesterday given post-void residual of 60 cc. - Will continue conservative cares and allow him to drink ad christa today. - Continue to hold oxybutynin as he is voiding well without it. - Unable to get a renal ultrasound in house as this service is not currently available. CT scan is unlikely to be of any benefit based on evaluation thus far. If his creatinine and electrolytes stabilize, he can likely be discharged and can have an ultrasound as an outpatient. - Recheck labs in the am. 4. Anemia, NOS - Hemoglobin is up this morning. I do wonder whether his lab draws were done above the IV infusing, which was augmenting the hemodilution contribution. - Recheck with am labs. 5. Aspiration Pneumonitis, resolved - Presumed to be the cause of his fever and shortness of breath . - His symptoms have rapidly resolved, which argues against a bacterial infection. - He has remained afebrile and stable from a respiratory standpoint off antibiotics. - Swallow study completed yesterday and diet adjusted accordingly. 6. Hypoxia, resolved - Weaned off daytime oxygen. Likely significant component of positional etiology versus contribution from #3 above. - At baseline. 7. Generalized weakness, improved to baseline - Likely related to numbers 1 through 3 as above. Certainly some aspiration component could be contributing as well as his positional hypoxia. - Drug levels within range. - CT head with chronic changes - nothing acute. - PT and OT consult to see what we can do to [facility]. 8. Schizoaffective disorder, bipolar type 9. 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 - As above, drug levels for lithium and depakote are within range. 11. Abnormal involuntary movements - Continue propranolol. Fluids: Orals Diet: Mechanical soft DVT Prophylaxis: Start heparin today given he is staying another night and has a stable hemoglobin and negative head CT Disposition: Anticipate d/c back to the care center tomorrow if his creatinine remains stable and electrolytes improve
[2016-06-28] MEDS: Sodium Chloride 0.9% 10 ML Syringe FLUSH PRN (21:31)
[2016-06-28] MEDS: Heparin Sodium 5,000 Units/ML Vial SUBCUT SCH (23:47)
[2016-06-29] MEDS: Propranolol 20 MG Tab PO SCH ×4 (07:44→19:50)
[2016-06-29] MEDS: Divalproex Sodium Delayed-Release 250 MG Tab.CR PO SCH ×2 (07:44→17:18)
[2016-06-29] MEDS: OLANZapine 5 MG Tab PO SCH ×2 (07:44→19:51)
[2016-06-29] MEDS: Heparin Sodium 5,000 Units/ML Vial SUBCUT SCH ×4 (07:46→21:11)
[2016-06-29] MEDS: Lithium Carbonate 450 MG Tab.ER PO SCH (07:50)
[2016-06-29] MEDS: Polyethylene Glycol 3350 Powder 17 GM Packet PO SCH (07:51)
[2016-06-29] MEDS ORDERED: Divalproex Sodium Delayed-Release 250 MG Tab.CR PO SCH (18:00)
[2016-06-29] MEDS: Sodium Chloride 0.9% 10 ML Syringe FLUSH PRN (19:50)
--- NOTE | 2016-06-29 21:44 | PCM.PN ---
- General Info Date of Service: 06/29/16 - Review of Systems Systems Review Comment:: History: He was admitted with weakness, decreased level of consciousness, no known cause. Increasing creatinine, presumed acute kidney injury. He has long- standing bipolar disorder plus traumatic brain injury many years ago, and because of deteriorating behavior, has been followed by Dr. Shoemaker, Psychiatry, at [facility]. He is on Depakote 750 mg BID and also the past year or so on lithium, and his level has been OK. His GFR has decreased from 60 down to 40 over the past 6 months. In hospital he remains hypernatremic, Na+ of 155 now, up from 153 yesterday. 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 He is afebrile and has certainly improved, alert and fairly jovial, although remains severely dysarthric. He has had a swallowing evaluation and is on modified diet. - Patient Data Vitals - most recent: Last Vital Signs Temp 37.2 C 06/29/16 21:25 Pulse 78 06/29/16 21:25 Resp 20 06/29/16 21:25 BP 146/85 H 06/29/16 21:25 Pulse Ox 97 06/29/16 21:34 Weight - most recent: 101.968 kg I&O - last 24 hours: Intake & Output 06/29/16 06/29/16 06/29/16 06:59 14:59 22:59 Intake Total 320 120 Output Total 661 353 8184 Balance -100 120 -930 Lab Results last 24 hrs: Laboratory Results - last 24 hr 06/29/16 06/29/16 Range/Units 06:20 06:20 WBC 7.0 (4.0-10.0) x10^3/uL RBC 4.17 L (4.5-6.0) x10^6/uL Hgb 12.4 L (14.0-18.0) g/dL Hct 43.0 (40.0-52.0) % MCV 103.1 H (78.0-93.0) fL MCH 29.7 (26.0-32.0) pg MCHC 28.8 L (32.0-36.0) g/dL RDW Coeff of Karyn 16.3 H (10.0-15.0) % Plt Count 219 (130-400) x10^3/uL Add Manual Diff Yes Neutrophils % (Manual) 58 (50-80) % Band Neutrophils % 8 H (0-6) % Lymphocytes % (Manual) 30 (25-50) % Monocytes % (Manual) 3 (2-11) % Eosinophils % (Manual) 1 (0-4) % Platelet Estimate Adequate Sodium 155 H (136-145) mmol/L Potassium 5.0 (3.5-5.1) mmol/L Chloride 117 H (98-107) mmol/L Carbon Dioxide 37 H (21-32) mmol/L BUN 24 H (7-18) mg/dL Creatinine 1.7 H (0.70-1.30) mg/dL Est Cr Clr Drug Dosing 40.14 mL/min Estimated GFR (MDRD) 41 Glucose 100 (74-106) mg/dL Calcium 10.0 (8.5-10.1) mg/dL Med Orders - Current: Current Medications Acetaminophen (Tylenol) 650 mg PO Q4H PRN PRN Reason: Pain/Fever Bisacodyl (Dulcolax) 5 mg PO DAILY PRN PRN Reason: Constipation Last Admin: 06/28/16 07:59 Dose: 5 mg Divalproex Sodium (Divalproex Sodium) 750 mg PO BIDMEALS [facility] Last Admin: 06/29/16 17:18 Dose: 750 mg Heparin Sodium (Porcine) (Heparin Sodium) 5,000 units SUBCUT Q8H [facility] Last Admin: 06/29/16 21:11 Dose: 5,000 units Multivitamins/Minerals (Thera M Plus) 1 tab PO DAILY [facility] Olanzapine (Zyprexa) 5 mg PO BID [facility] Last Admin: 06/29/16 19:51 Dose: 5 mg Polyethylene Glycol (Miralax) 17 gm PO DAILY [facility] Last Admin: 06/29/16 07:51 Dose: Not Given Propranolol HCl (Inderal) 10 mg PO QID [facility] Last Admin: 06/29/16 19:50 Dose: 10 mg Sodium Chloride (Saline Flush) 10 ml FLUSH ASDIRECTED PRN PRN Reason: Keep Vein Open Last Admin: 06/29/16 19:50 Dose: 10 ml Discontinued Medications Calcium Carbonate/Glycine (Tums Extra Strength) 750 mg PO QID PRN PRN Reason: Heartburn Divalproex Sodium (Divalproex Sodium) 750 mg PO BID [facility] Last Admin: 06/29/16 07:44 Dose: 750 mg Divalproex Sodium (Divalproex Sodium) 250 mg PO BIDMEALS [facility] Guaifenesin (Robitussin) 200 mg PO Q4HR PRN PRN Reason: Cough Heparin Sodium (Porcine) (Heparin Sodium) 5,000 units SUBCUT Q8H [facility] Last Admin: 06/28/16 12:19 Dose: 5,000 units Piperacillin Sod/Tazobactam (Sod 3.375 gm/ Sodium Chloride) 100 mls @ 200 mls/ hr IV Q6H [facility] Last Admin: 06/26/16 15:36 Dose: Not Given Sodium Chloride (Normal Saline) 1,000 mls @ 100 mls/hr IV ASDIRECTED [facility] Last Admin: 06/27/16 04:13 Dose: 100 mls/hr Piperacillin Sod/Tazobactam (Sod 2.25 gm/ Sodium Chloride) 100 mls @ 200 mls/ hr IV Q6H [facility] Last Admin: 06/27/16 04:31 Dose: 200 mls/hr Sodium Chloride (Normal Saline) 1,000 mls @ 100 mls/hr IV ASDIRECTED [facility] Last Admin: 06/27/16 14:59 Dose: 100 mls/hr [place] Carbonate (Eskalith Cr) 450 mg PO DAILY [facility] Last Admin: 06/29/16 07:50 Dose: 450 mg Non-Formulary Medication (Divalproex Sodium) 500 mg PO BID [facility] - Exam Physical Findings Comments:: Exam: -Lungs are nearly clear, only scattered coarse wheezes and rales -Heart sounds normal and regular, HR 78 -Alert and cheerful -BP 146/85 - Problem List Review Problem List Initiated/Reviewed/Updated: Yes - My Orders Last 24 Hours: My Active Orders 06/30/16 07:30 BASIC METABOLIC PANEL,BMP [CHEM] Routine - Assessment Assessment:: -Decreased level of alertness from unknown cause -Deterioration of kidney function over the past 6 months along with hypernatremia, 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 Shoemaker -We agreed to D/C lithium and leave him just on Depakote at his present dose -Check BMP tomorrow, if his Na+ is not any higher then he can go back to [facility]
[2016-06-30] MEDS: Heparin Sodium 5,000 Units/ML Vial SUBCUT SCH (05:32)
[2016-06-30] MEDS: Propranolol 20 MG Tab PO SCH (07:48)
[2016-06-30] MEDS: Divalproex Sodium Delayed-Release 250 MG Tab.CR PO SCH (07:49)
[2016-06-30] MEDS: OLANZapine 5 MG Tab PO SCH (07:50)
[2016-06-30] MEDS: Polyethylene Glycol 3350 Powder 17 GM Packet PO SCH (07:51)
[2016-06-30] MEDS: Sodium Chloride 0.9% 10 ML Syringe FLUSH PRN (07:52)
[2016-06-30 10:08] VITALS: BP 113/79
--- NOTE | 2016-06-30 11:29 | PCM.DCSUM1 ---
Discharge Summary - Discharge Data Discharge Date: 06/30/16 Discharge Disposition: DC/Tfer to SNF 03 Condition: Good - Patient Summary/Data Consults: Consultations 06/26/16 17:48 Consult to Speech Language Pathology [STRATEGIC DEBRIEFING SPECIALIST Evaluation and Treatment] [CONS] Routine 06/27/16 08:13 OT Evaluation and Treatment [CONS] Routine PT Evaluation and Treatment [CONS] Routine - Discharge Plan Home Medications: Home Meds Acetaminophen [Tylenol] 650 mg PO Q4H PRN 04/24/16 [History] Bisacodyl [Dulcolax] 5 mg PO DAILY PRN 04/24/16 [History] Oxybutynin 5 mg PO DAILY 04/24/16 [History] Propranolol HCl [Propranolol] 10 mg PO QID 04/24/16 [History] Calcium Carbonate [Tums] 1,000 mg PO QID PRN 05/18/16 [History] Multivit-Min/FA/Lycopene/Lut [Centrum Silver Tablet] 1 tab PO DAILY 05/18/16 [ History] Polyethylene Glycol 3350 [MiraLAX] 17 gm PO DAILY 05/18/16 [History] Terbinafine [LamISIL AT 1% Crm] 0.5 gm TOP BID PRN 05/18/16 [History] guaiFENesin [Adult Tussin Chest Congestion] 200 mg PO Q4HR PRN 05/18/16 [History ] OLANZapine [ZyPREXA] 5 mg PO BID 06/26/16 [History] Divalproex Sodium 750 mg PO BIDMEALS tab.cr 06/30/16 [Rx] - Discharge Summary/Plan Comment Discharge Summary/Plan Comment: Final Diagnosis: -Symptomatic hypernatremia, altered mental status, 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 Assessment difficult because of previous head injury with spastic quadriparesis, L exotropia and ansocoria. Behavior is also affected by his lifelong bipolar disorder, delusional disorder, which has been managed the past few months with Depakote and lithium, gets regular consults from Dr. Shoemaker, Psychiatry, at [facility]. Had low- grade fever and decreased intake the past few days but not coughing. Has required oxygen at night to maintain oximetry at 90%. Initial Findings: -Except for lethargy exam was unchanged from previous, with spastic quadriparesis, L exotropia, ansocoria -Creatinine 1.9, elevated from previous, had been 1.26 months previous -Na+ 142, but barbie to 153 on repeat the first hospital day -Hb 11.7, WBC 8200 -Li+ level 0.61 -Glucose 102 -TSH 5.3 Treatment and Course in Hospital: He was given mildly hypotonic IV fluid, but his Na+ continued to rise, 153 on , 155 on 06/29. He did become more alert and was afebrile, so his Zosyn was stopped after the first day and he did not have any coughing, continued on his modified diet for dysphagia. I discussed his deteriorating renal function and hypernatremia with Dr. Shoemaker, and we decided that although there can be many causes for hypernatremia, lithium could likely be a cause because it is known to cause nephrogenic diabetes insipidus. Did not give him DDAVP because in the past he has developed hyponatremia from that, but his lithium was D/Cd. Repeat BMP on the day of D/C was not any worse, Na+ 154, and since he has regained his normal level of alertness he is D/Cd back to [facility]. He is continuing Depakote 750 mg BID which is his previous dose but he will be off of lithium. Condition on Discharge: -Behavior reminds mildly bizarre, he struck out at me this morning, could not determine if it was in just or from temporary confusion -He is alert and cheerful -Heart sounds regular and normal -Lungs clear Discharge Plan: -Continue all his previous medications from [facility] except for lithium -Get BMP next week - Patient Data Vitals - Most Recent: Last Vital Signs Temp 37.1 C 06/30/16 10:00 Pulse 102 H 06/30/16 10:00 Resp 20 06/30/16 05:29 BP 113/79 06/30/16 10:00 Pulse Ox 95 06/30/16 10:00 Weight - Most Recent: 101.968 kg I&O - Last 24 hours: Intake & Output 06/29/16 06/30/16 06/30/16 22:59 06:59 14:59 Intake Total 120 200 240 Output Total 1050 300 200 Balance -930 -100 40 Lab Results - Last 24 hrs: Laboratory Results - last 24 hr 06/30/16 Range/Units 07:27 Sodium 154 H (136-145) mmol/L Potassium 5.3 H (3.5-5.1) mmol/L Chloride 116 H (98-107) mmol/L Carbon Dioxide 38 H (21-32) mmol/L BUN 32 H (7-18) mg/dL Creatinine 1.9 H (0.70-1.30) mg/dL Est Cr Clr Drug Dosing 35.91 mL/min Estimated GFR (MDRD) 36 Glucose 107 H (74-106) mg/dL Calcium 10.4 H (8.5-10.1) mg/dL Med Orders - Current: Current Medications Discontinued Medications Acetaminophen (Tylenol) 650 mg PO Q4H PRN PRN Reason: Pain/Fever Bisacodyl (Dulcolax) 5 mg PO DAILY PRN PRN Reason: Constipation Last Admin: 06/28/16 07:59 Dose: 5 mg Calcium Carbonate/Glycine (Tums Extra Strength) 750 mg PO QID PRN PRN Reason: Heartburn Divalproex Sodium (Divalproex Sodium) 750 mg PO BID [facility] Last Admin: 06/29/16 07:44 Dose: 750 mg Divalproex Sodium (Divalproex Sodium) 250 mg PO BIDMEALS [facility] Divalproex Sodium (Divalproex Sodium) 750 mg PO BIDMEALS [facility] Last Admin: 06/30/16 07:49 Dose: 750 mg Guaifenesin (Robitussin) 200 mg PO Q4HR PRN PRN Reason: Cough Heparin Sodium (Porcine) (Heparin Sodium) 5,000 units SUBCUT Q8H [facility] Last Admin: 06/28/16 12:19 Dose: 5,000 units Heparin Sodium (Porcine) (Heparin Sodium) 5,000 units SUBCUT Q8H [facility] Last Admin: 06/30/16 05:32 Dose: 5,000 units Piperacillin Sod/Tazobactam (Sod 3.375 gm/ Sodium Chloride) 100 mls @ 200 mls/ hr IV Q6H [facility] Last Admin: 06/26/16 15:36 Dose: Not Given Sodium Chloride (Normal Saline) 1,000 mls @ 100 mls/hr IV ASDIRECTED [facility] Last Admin: 06/27/16 04:13 Dose: 100 mls/hr Piperacillin Sod/Tazobactam (Sod 2.25 gm/ Sodium Chloride) 100 mls @ 200 mls/ hr IV Q6H [facility] Last Admin: 06/27/16 04:31 Dose: 200 mls/hr Sodium Chloride (Normal Saline) 1,000 mls @ 100 mls/hr IV ASDIRECTED [facility] Last Admin: 06/27/16 14:59 Dose: 100 mls/hr [place] Carbonate (Eskalith Cr) 450 mg PO DAILY [facility] Last Admin: 06/29/16 07:50 Dose: 450 mg Multivitamins/Minerals (Thera M Plus) 1 tab PO DAILY [facility] Non-Formulary Medication (Divalproex Sodium) 500 mg PO BID [facility] Olanzapine (Zyprexa) 5 mg PO BID [facility] Last Admin: 06/30/16 07:50 Dose: 5 mg Polyethylene Glycol (Miralax) 17 gm PO DAILY [facility] Last Admin: 06/30/16 07:51 Dose: 17 gm Propranolol HCl (Inderal) 10 mg PO QID [facility] Last Admin: 06/30/16 07:48 Dose: 10 mg Sodium Chloride (Saline Flush) 10 ml FLUSH ASDIRECTED PRN PRN Reason: Keep Vein Open Last Admin: 06/30/16 07:52 Dose: 10 ml *Q Meaningful Use (DIS) - VTE *Q VTE Criteria *Q: VTE Anticoagulation Contraindications: Med/tx not indicated/need - Stroke *Q Stroke Criteria *Q: - AMI *Q AMI Criteria *Q:
== END 2016-06-30 11:05 | DRG 682 ==
LOC: VM.MS 14:51
PROVIDERS: ADMIT Family Medicine; ATTEND Family Medicine
DX: N17.9 Acute kidney failure, unspecified (principal); J69.0 Pneumonitis due to inhalation of food and vomit; G82.50 Quadriplegia, unspecified; E87.0 Hyperosmolality and hypernatremia; E23.2 Diabetes insipidus; G25.9 Extrapyramidal and movement disorder, unspecified; E86.0 Dehydration; E83.52 Hypercalcemia; R09.02 Hypoxemia; R53.1 Weakness; R50.9 Fever, unspecified; R06.02 Shortness of breath; R41.82 Altered mental status, unspecified; D64.9 Anemia, unspecified; F31.9 Bipolar disorder, unspecified; R13.10 Dysphagia, unspecified; M85.80 Other specified disorders of bone density and structure, unspecified site; M41.9 Scoliosis, unspecified; H50.10 Unspecified exotropia; R47.1 Dysarthria and anarthria; Z96.649 Presence of unspecified artificial hip joint; Z87.820 Personal history of traumatic brain injury; Z79.899 Other long term (current) drug therapy; Z87.891 Personal history of nicotine dependence
CPT/HCPCS: 36415; 70450; 80048; 80164; 80178; 81001; 82570; 84300; 84443; 85018; 85025; 92526-GN; 92610-GN; 94760; 97165-GO; 97542-GO; A9270-GY; J1644; J2543; J7030; J7050

== ENCOUNTER 2016-07-03 19:32 | Emergency (ER) | payer OTHER, MEDICARE, MEDICAID ==
[2016-07-03 21:45] VITALS: BP 114/79
--- NOTE | 2016-07-04 08:27 | ER ---
Date of Service: 07/03/2016 SUBJECTIVE: Tavares presents to the emergency room with a history of vomiting tonight at the [facility]. The patient has a history of traumatic brain injury and history of recurrent aspiration pneumonia. The patient had been brought back from dinner and was put into bed. On staff rounding, the patient was found to have vomit in and around his mouth. The patient was subsequently transferred to [facility] for evaluation. The patient was discharged from [facility] after the following treatment for aspiration pneumonia this past weekend. PAST MEDICAL HISTORY: 1. Aspiration pneumonia. 2. History of sepsis and SIRS secondary to aspiration pneumonia. 3. Bipolar 1 disorder. 4. Schizoaffective disorder. 5. History of traumatic brain injury. 6. Dysphagia. 7. Delusions. 8. History of epistaxis. 9. Dementia. 10.History of hypercalcemia. 11.Diabetes insipidus. 12.Chronic hypernatremia. 13.Chronic kidney disease. MEDICATIONS: 1. Guaifenesin. 2. Lamisil cream. 3. Propranolol. 4. MiraLAX. 5. Oxybutynin. 6. Zyprexa. 7. Centrum Silver. 8. Depakote. 9. Tums. 10.Dulcolax. 11.Acetaminophen. ALLERGIES: To red food dye. REVIEW OF SYSTEMS: Unobtainable. PHYSICAL EXAMINATION: General: This is a 61-year-old male patient, in no acute distress. Vital Signs: Blood pressure is 127/86, heart rate is 90, temperature is 37.2, respiratory rate is 18, O2 saturation is 93% to 96% on room air. Skin: Warm, pale, and dry. HEENT: Head is normocephalic, atraumatic. Mouth, oral mucosa is moist. He does have some small particles of food noted in his oropharynx. Chest: No sternal or intercostal retractions noted. Lungs: Clear to auscultation. Heart: Regular rate and rhythm. Abdomen: Soft, nontender. There is no hepatosplenomegaly or masses noted. Distended. Extremities: Without edema. Neurologic: The patient normally is noncommunicative for the most part, except for simple words. His neurologic examination does not appear to be any different from previous. IMAGING: Portable chest x-ray was obtained. There was no evidence of any acute infiltrate. LABORATORY DATA: WBCs 8.8, hemoglobin is 12.4, platelets are 193. Chemistry; sodium is 160, potassium is 4.8, chloride is 120, bicarb is 34, BUN is 57, creatinine is 2.7, creatinine clearance is 25.27, GFR is 24, glucose is 201, lactic acid is 2.3, calcium is 9.9, C-reactive protein is 2.7. ASSESSMENT: Vomiting and questionable aspiration. PLAN: At this point, the patient does not appear to be acutely ill and is not exhibiting any obvious signs of aspiration. I did speak with Dr. Cowart regarding this patient. At this point, we will transfer him back to the [facility]. He did ask that I have the [facility] contact Dr. Cowart in the clinic tomorrow regarding Tavares's diabetes insipidus. I did advise the [facility] to elevate the head of the bed and begin a mechanical soft diet. Also, advised them to have him sit upright for at least 60 minutes after meals. Follow up in the clinic in the next 7 to 10 days, sooner if cough, chest congestion, respiratory distress, or hypoxia. All questions were answered. MWK: 07/03/2016 21:48:01 MODL: 07/03/2016 22:49:55 /[id number]
== END 2016-07-03 21:57 ==
LOC: VM.ED 19:32
DX: R11.10 Vomiting, unspecified (principal); N18.9 Chronic kidney disease, unspecified; E23.2 Diabetes insipidus
CPT/HCPCS: 36415; 71010; 80048; 83605; 85025; 86140; 87040; 99284-GF; 99285

== ENCOUNTER 2016-07-07 03:35 | Inpatient (IN) | payer MEDICARE, MEDICAID ==
[2016-07-07] MEDS ORDERED: methylPREDNISolone Sodium Succinate 125 MG/2 ML SDV IVPUSH ONE (03:50)
[2016-07-07] MEDS ORDERED: Acetaminophen 650 MG Supp RECTAL ONE (03:53)
[2016-07-07] MEDS ORDERED: Sodium Chloride 0.9% 10 ML Syringe FLUSH PRN (03:53)
[2016-07-07] MEDS ORDERED: Sodium Chloride 0.9% 1,000 ML IV SCH (04:00)
[2016-07-07] MEDS ORDERED: cefTRIAXone 1 GM Vial IVPUSH ONE (04:19)
[2016-07-07 04:41] LABS: CHLORIDE,CL 125 mmol/L (98-107)
--- NOTE | 2016-07-07 04:43 | EDM.PDOC ---
ED HISTORY OF PRESENT ILLNESS - General Chief Complaint: Respiratory Problem Stated Complaint: Unresponsive, fever, Respiratory distress Time Seen by Provider: 07/07/16 04:00 Source of Information: Reports: EMS, [facility] records History Limitations: Reports: Altered mental status - History of Present Illness INITIAL COMMENTS - FREE TEXT/NARRATIVE: patient brought by ambulance from care center with decreased mental status, respiratory distress, and fever. onset sudden tonight. despite oxygen patient' s SATS remained in the 70's. he was recently discharged from hospital for change in mental status and then again seen in ER a few days later for swallowing difficulties and chocking on food. Timing/Duration: Reports: Hour(s): Severity: severe Improves with: Reports: None Worsens with: Reports: None Associated Symptoms (General): Reports: fever/chills, shortness of breath Treatments [employer]: Reports: Oxygen - Related Data Allergies/ADRs: Allergies Allergy/AdvReac Type Severity Reaction Status Date / Time red dye Allergy Cannot Verified 07/03/16 20:09 Remember Home Meds: Home Meds Acetaminophen [Tylenol] 650 mg PO Q4H PRN 04/24/16 [History] Bisacodyl [Dulcolax] 5 mg PO DAILY PRN 04/24/16 [History] Oxybutynin 5 mg PO DAILY 04/24/16 [History] Propranolol HCl [Propranolol] 10 mg PO QID 04/24/16 [History] Calcium Carbonate [Tums] 1,000 mg PO QID PRN 05/18/16 [History] Multivit-Min/FA/Lycopene/Lut [Centrum Silver Tablet] 1 tab PO DAILY 05/18/16 [ History] Polyethylene Glycol 3350 [MiraLAX] 17 gm PO DAILY 05/18/16 [History] Terbinafine [LamISIL AT 1% Crm] 0.5 gm TOP BID PRN 05/18/16 [History] guaiFENesin [Adult Tussin Chest Congestion] 200 mg PO Q4HR PRN 05/18/16 [History ] OLANZapine [ZyPREXA] 5 mg PO BID 06/26/16 [History] Divalproex Sodium 750 mg PO BIDMEALS tab.cr 06/30/16 [Rx] Past Medical History HEENT History: Reports: Hard of hearing, Other (see below) Other HEENT History: Dysphagia Cardiovascular History: Reports: None Respiratory History: Reports: None Gastrointestinal History: Reports: Chronic constipation, Other (see below) Other Gastrointestinal History: dysphagia Genitourinary History: Reports: Urinary incontinence, UTI, recurrent Musculoskeletal History: Reports: Other (see below) Other Musculoskeletal History: Secondary Scoliosis, hx of falling, abnormal posture, disorder of bone unspecified Neurological History: Reports: Brain injury, Other (see below) Other Neuro History: Quadriplegia, Involuntay movements Psychiatric History: Reports: Anxiety, Bipolar, Mood swings, Schizophrenia, Other (see below) Other Psychiatric History: Delusional, Affective disorder, traumatic brain injury Endocrine/Metabolic History: Reports: Other (see below) Other Endocrine/Metabolic History: Hyponeutremia, Hypo-osmolality Hematologic History: Reports: None Immunologic History: Reports: None Oncologic (Cancer) History: Reports: None Dermatologic History: Reports: None - Past Surgical History Musculoskeletal Surgical History: Reports: Hip replacement Social & Family History - Family History Family Medical History: Noncontributory Musculoskeletal: Reports: Osteoporosis Neurological: Reports: CVA - Tobacco Use Smoking Status *Q: Former Smoker Years of Tobacco use: 5 Used Tobacco, but Quit: Yes Month Tobacco Last Used: Unknown - Recreational Drug Use Recreational Drug Use: No - Living Situation & Occupation Living situation: Reports: single, extended care facility ED ROS GENERAL - Review of Systems Review Of Systems: ROS reveals no pertinent complaints other than HPI. ED EXAM, GENERAL - Physical Exam Exam: See Below Exam Limited By: Altered mental status General Appearance: moderate distress, obese Eye Exam: bilateral eye: PERRL Ears: normal external exam Nose: normal inspection, normal mucosa Throat/Mouth: Normal inspection, Normal lips Head: atraumatic, normocephalic Neck: normal inspection, supple Respiratory/Chest: respiratory distress, crackles (to all lung vyas), rhonchi (to all lung vyas. ) Cardiovascular: regular rate, rhythm, tachycardia GI/Abdominal: normal bowel sounds, distended Extremities: no pedal edema Course - Orders/Labs/Meds Orders: Active Orders 24 hr Category Date Time Status Chest 1V Frontal [CR] Stat Exams 07/07/16 03:50 Taken COMPREHENSIVE METABOLIC PN,CMP [CHEM] Stat Lab 07/07/16 04:00 Received CULTURE BLOOD [BC] Stat Lab 07/07/16 04:00 Received CULTURE BLOOD [BC] Stat Lab 07/07/16 04:05 Results LACTIC ACID [CHEM] Stat Lab 07/07/16 04:00 Received Sodium Chloride 0.9% [Normal Saline] 1,000 ml Med 07/07/16 04:00 Active IV ASDIRECTED Sodium Chloride 0.9% [Saline Flush] Med 07/07/16 03:53 Active 10 ml FLUSH ASDIRECTED PRN Blood Culture x2 Reflex Set [OM.PC] Stat Oth 07/07/16 03:50 Ordered Saline Lock Insert [OM.PC] Routine Oth 07/07/16 03:53 Ordered Medication Orders Sodium Chloride (Normal Saline) 1,000 mls @ 100 mls/hr IV ASDIRECTED JL Last Admin: 07/07/16 04:05 Dose: 100 mls/hr Sodium Chloride (Saline Flush) 10 ml FLUSH ASDIRECTED PRN PRN Reason: Keep Vein Open Labs: Laboratory Tests 07/07/16 Range/Units 04:00 WBC 17.7 H (4.0-10.0) x10^3/uL RBC 4.76 (4.5-6.0) x10^6/uL Hgb 14.2 (14.0-18.0) g/dL Hct 50.7 (40.0-52.0) % MCV 106.5 H (78.0-93.0) fL MCH 29.8 (26.0-32.0) pg MCHC 28.0 L (32.0-36.0) g/dL RDW Coeff of Karyn 17.7 H (10.0-15.0) % Plt Count 201 (130-400) x10^3/uL Add Manual Diff Yes Neutrophils % (Manual) 56 (50-80) % Band Neutrophils % 9 H (0-6) % Lymphocytes % (Manual) 27 (25-50) % Monocytes % (Manual) 7 (2-11) % Eosinophils % (Manual) 1 (0-4) % Platelet Estimate Adequate Meds: Medications Generic Name Dose Route Start Last Admin Trade Name Freq PRN Reason Stop Dose Admin Sodium Chloride 1,000 mls @ 100 mls/hr 07/07/16 04:00 07/07/16 04:05 Normal Saline IV 100 mls/hr ASDIRECTED JL Administration Sodium Chloride 10 ml 07/07/16 03:53 Saline Flush FLUSH ASDIRECTED PRN Keep Vein Open Discontinued Medications Generic Name Dose Route Start Last Admin Trade Name Shadi PRN Reason Stop Dose Admin Acetaminophen 650 mg 07/07/16 03:53 Tylenol RECTAL 07/07/16 03:54 NOW ONE Ceftriaxone Sodium 1 gm 07/07/16 04:19 07/07/16 04:26 Rocephin IVPUSH 07/07/16 04:20 1 gm ONETIME ONE Administration Methylprednisolone Sodium Succinate 125 mg 07/07/16 03:50 07/07/16 04:23 Solu-Medrol IVPUSH 07/07/16 03:51 125 mg ONETIME ONE Administration Departure - Departure Time of Disposition: 04:50 Disposition: Admitted As Inpatient 64 Condition: poor Clinical Impression: Septicemia, Hypoxemia, Pneumonia, Respiratory distress Instructions: Aspiration Pneumonia Forms: ED Department Discharge - Problem List & Annotations (1) Hypoxia SNOMED Code(s): 240583607, 660740754 Code(s): R09.02 - HYPOXEMIA Status: Resolved Priority: High Current Visit: Yes (2) Aspiration pneumonitis SNOMED Code(s): 138582593 Code(s): J69.0 - PNEUMONITIS DUE TO INHALATION OF FOOD AND VOMIT Status: Resolved Priority: Medium Current Visit: Yes (3) Respiratory distress SNOMED Code(s): 324777441 Code(s): R06.00 - DYSPNEA, UNSPECIFIED Status: Acute Priority: High Current Visit: Yes - My Orders Last 24 Hours: My Active Orders 07/07/16 03:50 Chest 1V Frontal [CR] Stat Blood Culture x2 Reflex Set [OM.PC] Stat 07/07/16 03:53 Sodium Chloride 0.9% [Saline Flush] 10 ml FLUSH ASDIRECTED PRN Saline Lock Insert [OM.PC] Routine 07/07/16 04:00 COMPREHENSIVE METABOLIC PN,CMP [CHEM] Stat CULTURE BLOOD [BC] Stat LACTIC ACID [CHEM] Stat Sodium Chloride 0.9% [Normal Saline] 1,000 ml IV ASDIRECTED 07/07/16 04:05 CULTURE BLOOD [BC] Stat - Assessment/Plan Last 24 Hours: My Active Orders 07/07/16 03:50 Chest 1V Frontal [CR] Stat Blood Culture x2 Reflex Set [OM.PC] Stat 07/07/16 03:53 Sodium Chloride 0.9% [Saline Flush] 10 ml FLUSH ASDIRECTED PRN Saline Lock Insert [OM.PC] Routine 07/07/16 04:00 COMPREHENSIVE METABOLIC PN,CMP [CHEM] Stat CULTURE BLOOD [BC] Stat LACTIC ACID [CHEM] Stat Sodium Chloride 0.9% [Normal Saline] 1,000 ml IV ASDIRECTED 07/07/16 04:05 CULTURE BLOOD [BC] Stat Plan: admit to acute care.
[2016-07-07 04:44] LABS: SODIUM,NA 166 mmol/L (136-145)
[2016-07-07] MEDS: Sodium Chloride 0.45% 1,000 ML IV SCH ×3 (05:30→16:15)
[2016-07-07] MEDS ORDERED: Albuterol/Ipratropium 3.0-0.5 MG/3 ML Neb Soln NEB PRN (05:34)
[2016-07-07] MEDS ORDERED: Albuterol 0.083% 2.5 MG/3 ML Neb Soln NEB PRN (05:38)
[2016-07-07] MEDS: Albuterol/Ipratropium 3.0-0.5 MG/3 ML Neb Soln NEB SCH ×3 (06:56→19:44)
[2016-07-07] MEDS ORDERED: Piperacillin/Tazobactam 4.5 GM in Sodium Chloride 0.9% 100 ML IV ONE (08:00)
--- NOTE | 2016-07-07 08:56 | HP ---
REASON FOR ADMISSION: Respiratory distress. HISTORY: A 61-year-old white male, resident of the Special Care Unit at the [facility] was brought over by ambulance in acute respiratory distress. Emergency room notes that he has decreased mental status, respiratory distress with a fever of sudden onset tonight. His O2 sats were in the 70s. He was recently discharged from [facility] on 06/30/2016 with aspiration pneumonia. He was placed on thickened liquids and to be sitting up. He was brought back in earlier this week with a choking episode. History is obtained from old records. The patient is unresponsive and not able to answer any questions at this time. See his previous chart for details of his past medical history. PAST MEDICAL HISTORY: This includes schizoaffective disorder, bipolar type; delusion disorder; spastic quadriparesis, secondary to traumatic brain injury; abnormal involuntary movements; dysphasia; urinary incontinence. MEDICATIONS: Include guaifenesin, Lamisil cream topically, Zoloft, propranolol, MiraLAX, oxybutynin, Zyprexa, multivitamins, Depakote, calcium, Dulcolax, and Tylenol. ALLERGIES: Red dye. PHYSICAL EXAMINATION: General: He is unresponsive. He currently has a BiPAP on as I am seeing him. In the emergency room, he was given Rocephin, Solu-Medrol, and then some Zosyn, and initially started on non-rebreather, but then changed to BiPAP. Initial O2 sats were 70s, improved with BiPAP to 88%. Heart: Regular rate and rhythm. Lungs: Diffuse rhonchi and wheezing throughout. Abdomen: Obese and nontender. No masses palpable. Extremities: Warm and dry. No edema. Rest of the exam is deferred or unobtainable due to the patient's unresponsive condition. LABORATORY DATA: White count 17.7, hemoglobin is 14.4. Sodium is 166, potassium 5.2, BUN 72, creatinine 3.0, lactic acid 2.3. Glucose 160s, corrected calcium 10.5, ALT and AST are mildly elevated. Blood gases on BiPAP with an FiO2 of 0.8 showed pH of 7.287, pCO2 of 64, and a PO2 of 61. Chest x-ray; this does show infiltrate in the right lower lobe. ASSESSMENT: 1. Respiratory failure. 2. Presumed aspiration pneumonia. 3. Hypoxia. 4. The patient meets criteria for sepsis. PLAN: 1. The patient will be admitted to acute care status. We will continue with BiPAP with RT monitoring. I am going to keep on this for the foreseeable future. 2. Zosyn q.6 hours for his aspiration pneumonia. 3. Solu-Medrol 125 mg q.12 hours. 4. DuoNeb q.6 hours, albuterol nebs p.r.n. 5. IV fluids and monitor his condition. 6. Blood cultures have been obtained. 7. The patient is a DNR/DNI status. The patient's condition is guarded. FM: 07/07/2016 08:21:56 MODL: 07/07/2016 08:48:26 /[id number]
[2016-07-07] MEDS: Heparin Sodium 5,000 Units/ML Vial SUBCUT SCH ×2 (09:21→16:15)
[2016-07-07] MEDS: methylPREDNISolone Sodium Succinate 125 MG/2 ML SDV IVPUSH SCH ×2 (09:21→20:22)
[2016-07-07] MEDS: Piperacillin/Tazobactam 3.375 GM in Sodium Chloride 0.9% 100 ML IV SCH (16:14)
--- NOTE | 2016-07-07 19:34 | PN ---
Progress Note for AMANDA CRUZ Date: 07/07/2016 Room #: VM.215 FAMILY CONFERENCE NOTE In attendance are the 2 daughters, a brother, and of one of the daughters. HISTORY OF PRESENT ILLNESS: The patient's condition was discussed in detail with the family members. Their questions were answered. They had questions regarding his prognosis, and I explained to them that he was severely ill and his prognosis was guarded. They wondered if he would survive this and that question is difficult to answer. He is currently unresponsive, and it is questionable whether he would become more responsive as the time goes on. I advised that we continue the current course of therapy with IV antibiotics, IV Solu-Medrol, nebulization treatment, and BiPAP therapy for at least 48 hours, and then we can readdress the situation regarding his long-term needs. If he has not become responsive after 48 hours, end-of-life decision may need to be made. At that time, Dr. Cowart, can visit with them in more detail, on 07/09/2016. No further questions. Duration of the conference was approximately 20 minutes. FM: 07/07/2016 18:02:16 MODL: 07/07/2016 19:17:54 /[id number] LARA
[2016-07-08] MEDS: Heparin Sodium 5,000 Units/ML Vial SUBCUT SCH ×3 (00:04→15:39)
[2016-07-08] MEDS: Piperacillin/Tazobactam 3.375 GM in Sodium Chloride 0.9% 100 ML IV SCH ×3 (00:05→15:39)
[2016-07-08] MEDS: Albuterol/Ipratropium 3.0-0.5 MG/3 ML Neb Soln NEB SCH ×4 (01:39→18:00)
[2016-07-08] MEDS: methylPREDNISolone Sodium Succinate 125 MG/2 ML SDV IVPUSH SCH ×2 (07:34→20:59)
[2016-07-08] MEDS: Acetaminophen 650 MG Supp RECTAL PRN ×2 (07:43→16:49)
--- NOTE | 2016-07-08 11:24 | PN ---
Progress Note for AMANDA CRUZ Date: 07/08/2016 Room #: VM.215 SUBJECTIVE: A 61-year-old white male, admitted to the hospital on acute care status on 07/07/2016 with aspiration pneumonia, unresponsive with requirement of BiPAP for respiratory support. He is more awake today and was able to open his eyes. The BiPAP is in place. He had a good night last evening. No significant problems reported by nursing staff. OBJECTIVE: General: He remains unresponsive but does open his eyes. Vital Signs: He is afebrile with temperature 99.3, BP is 118/71, pulse 93, respiration rate is down to 16 which is a marked improvement, O2 sats 87% because of BiPAP. I and O, he had 600 out last shift. Heart: Regular rate rhythm. Lungs: Actually clear today. Abdomen: Benign but obese. Extremities: No edema. LABORATORY DATA: Laboratory from this morning is pending. ASSESSMENT: 1. Respiratory failure-improved. 2. Aspiration pneumonia. 3. Hypoxia-improved. 4. Positive criteria for sepsis. PLAN: We will continue on BiPAP today yet. Continue his Zosyn, Solu-Medrol, and DuoNebs. Changed his IV fluids to D5 and a half-normal saline 125 an hour. His MRSA screen is negative. He will continue with the DNR/DNI status. Dr. Cowart will assume care tomorrow. FM: 07/08/2016 09:41:48 MODL: 07/08/2016 11:16:44 /[id number]
[2016-07-08] MEDS: Dextrose 5%-0.45% NaCl 1,000 ML IV SCH ×2 (11:41→21:59)
[2016-07-09] MEDS: Piperacillin/Tazobactam 3.375 GM in Sodium Chloride 0.9% 100 ML IV SCH ×3 (00:53→15:39)
[2016-07-09] MEDS: Heparin Sodium 5,000 Units/ML Vial SUBCUT SCH ×3 (00:54→15:34)
[2016-07-09] MEDS: Albuterol/Ipratropium 3.0-0.5 MG/3 ML Neb Soln NEB SCH ×4 (00:54→18:18)
[2016-07-09] MEDS: methylPREDNISolone Sodium Succinate 125 MG/2 ML SDV IVPUSH SCH ×2 (07:35→20:13)
[2016-07-09] MEDS ORDERED: Divalproex Sodium Delayed-Release 250 MG Tab.CR PO SCH (09:30)
[2016-07-09] MEDS: Sertraline 50 MG Tab PO SCH (10:55)
[2016-07-09] MEDS: Desmopressin 0.2 MG Tab PO SCH ×2 (10:55→19:58)
[2016-07-09] MEDS: Dextrose 5%-0.45% NaCl 1,000 ML IV SCH (11:42)
[2016-07-09] MEDS: Divalproex Sodium Delayed-Release 125 MG Cap.Sprink PO SCH ×2 (15:08→17:09)
--- NOTE | 2016-07-09 16:58 | PCM.PN ---
- General Info Date of Service: 07/09/16 - Review of Systems Systems Review Comment:: History: Along with his worsening hypernatremia recently, he was admitted now with a fairly typical case of aspiration. He has been NPO since admission so he is not getting his Zoloft, Depakote, or DDAVP. His Na+ remains about 165. He was at first completely unresponsive, hypoxic and has responded to BiPAP. Yesterday he started opening his eyes and acknowledging people in the room, today he is more alert and smiles at me on my entering the room. His sister and brother are here, they have questions about how often we can expect this in the future, and if there is any way to prevent further episodes. Indeed he has had dysphagia for a long time, we have never really discussed gastrostomy tube, they dont think he would be much in favor of it. They agree that as his kidney function deteriorates, now stage 4, that he would not be a candidate for dialysis either. 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 He continues on Zosyn and is now afebrile, went for a while on high flow O2 today but then got hypoxic again so is back on BiPAP. - Patient Data Vitals - most recent: Last Vital Signs Temp 36.4 C 07/09/16 09:59 Pulse 83 07/09/16 09:59 Resp 20 07/09/16 09:59 BP 128/83 07/09/16 09:59 Pulse Ox 94 L 07/09/16 09:26 Weight - most recent: 101.659 kg I&O - last 24 hours: Intake & Output 07/09/16 07/09/16 07/09/16 06:59 14:59 22:59 Intake Total 1310 569 Output Total 750 Balance 560 569 Lab Results last 24 hrs: Laboratory Results - last 24 hr 07/09/16 07/09/16 Range/Units 06:42 06:42 WBC 10.2 H (4.0-10.0) x10^3/uL RBC 3.31 L (4.5-6.0) x10^6/uL Hgb 9.9 L (14.0-18.0) g/dL Hct 35.6 L (40.0-52.0) % MCV 107.6 H (78.0-93.0) fL MCH 29.9 (26.0-32.0) pg MCHC 27.8 L (32.0-36.0) g/dL RDW Coeff of Karyn 16.6 H (10.0-15.0) % Plt Count 98 L (130-400) x10^3/uL Add Manual Diff Yes Neutrophils % (Manual) 41 L (50-80) % Band Neutrophils % 39 H (0-6) % Lymphocytes % (Manual) 13 L (25-50) % Monocytes % (Manual) 3 (2-11) % Metamyelocytes % 4 H (0) % Nucleated RBCs 1 (0-5) /100WBC Platelet Estimate Decreased L Sodium 167 H* (136-145) mmol/L Potassium 3.9 (3.5-5.1) mmol/L Chloride 131 H (98-107) mmol/L Carbon Dioxide 30 (21-32) mmol/L BUN 84 H* (7-18) mg/dL Creatinine 3.0 H (0.70-1.30) mg/dL Est Cr Clr Drug Dosing 22.74 mL/min Estimated GFR (MDRD) 21 Glucose 279 H (74-106) mg/dL Calcium 9.4 (8.5-10.1) mg/dL Med Orders - Current: Current Medications Acetaminophen (Tylenol) 650 mg RECTAL Q4H PRN PRN Reason: analgesia/fever Last Admin: 07/08/16 16:49 Dose: 650 mg Albuterol (Proventil Neb Soln) 2.5 mg NEB Q2H PRN PRN Reason: Shortness of Breath Last Admin: 07/07/16 08:49 Dose: 2.5 mg Albuterol/Ipratropium (Duoneb 3.0-0.5 Mg/3 Ml) 3 ml NEB Q6HRRT [facility] Last Admin: 07/09/16 13:58 Dose: 3 ml Desmopressin Acetate (Desmopressin) 0.2 mg PO BID [facility] Last Admin: 07/09/16 10:55 Dose: 0.2 mg Divalproex Sodium (Depakote Sprinkle) 750 mg PO BIDMEALS [facility] Last Admin: 07/09/16 15:08 Dose: Not Given Heparin Sodium (Porcine) (Heparin Sodium) 5,000 units SUBCUT Q8H [facility] Last Admin: 07/09/16 15:34 Dose: 5,000 units Piperacillin Sod/Tazobactam (Sod 3.375 gm/ Sodium Chloride) 100 mls @ 25 mls/ hr IV Q8H [facility] Last Admin: 07/09/16 15:39 Dose: 25 mls/hr Dextrose/Sodium Chloride (Dextrose 5%-1/2 Ns) 1,000 mls @ 50 mls/hr IV ASDIRECTED [facility] Last Admin: 07/09/16 11:42 Dose: 125 mls/hr Methylprednisolone Sodium Succinate (Solu-Medrol) 125 mg IVPUSH Q12H [facility] Last Admin: 07/09/16 07:35 Dose: 125 mg Sertraline HCl (Zoloft) 50 mg PO DAILY [facility] Last Admin: 07/09/16 10:55 Dose: 50 mg Discontinued Medications Acetaminophen (Tylenol) 650 mg RECTAL NOW ONE Stop: 07/07/16 03:54 Last Admin: 07/07/16 04:40 Dose: 650 mg Albuterol/Ipratropium (Duoneb 3.0-0.5 Mg/3 Ml) 3 ml NEB Q2H PRN PRN Reason: Shortness of Breath Ceftriaxone Sodium (Rocephin) 1 gm IVPUSH ONETIME ONE Stop: 07/07/16 04:20 Last Admin: 07/07/16 04:26 Dose: 1 gm Divalproex Sodium (Divalproex Sodium) 750 mg PO BIDMEALS [facility] Last Admin: 07/09/16 11:49 Dose: Not Given Sodium Chloride (Normal Saline) 1,000 mls @ 100 mls/hr IV ASDIRECTED [facility] Last Admin: 07/07/16 04:05 Dose: 100 mls/hr Sodium Chloride (Sodium Chloride 0.45%) 1,000 mls @ 100 mls/hr IV ASDIRECTED [facility] Last Admin: 07/07/16 16:15 Dose: 100 mls/hr Piperacillin Sod/Tazobactam (Sod 4.5 gm/ Sodium Chloride) 100 mls @ 200 mls/hr IV ONETIME ONE Stop: 07/07/16 08:29 Last Admin: 07/07/16 09:26 Dose: 200 mls/hr Methylprednisolone Sodium Succinate (Solu-Medrol) 125 mg IVPUSH ONETIME ONE Stop: 07/07/16 03:51 Last Admin: 07/07/16 04:23 Dose: 125 mg Sodium Chloride (Saline Flush) 10 ml FLUSH ASDIRECTED PRN PRN Reason: Keep Vein Open - Exam Physical Findings Comments:: Exam: -Lung sounds are fairly clear -Heart sounds normal and regular -Alert enough to recognize me on entering the room -No ankle edema, has been lying in bed - Problem List Review Problem List Initiated/Reviewed/Updated: Yes - My Orders Last 24 Hours: My Active Orders 07/09/16 09:30 Desmopressin 0.2 mg PO BID Sertraline [Zoloft] 50 mg PO DAILY 07/09/16 11:37 Blood Glucose Check, Bedside [] 07/09/16 14:00 Divalproex Sodium [Depakote Sprinkle] 750 mg PO BIDMEALS 07/09/16 Lunch Thickened Liquids [DIET] - Assessment Assessment:: Impression: -Bipolar disorder -Remote (57 years) Hx of head injury -Hypernatremia, 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 -Slow IV to 50 ml/hr -Recheck BMP in 2 days
[2016-07-10] MEDS: Heparin Sodium 5,000 Units/ML Vial SUBCUT SCH ×3 (00:01→16:08)
[2016-07-10] MEDS: Piperacillin/Tazobactam 3.375 GM in Sodium Chloride 0.9% 100 ML IV SCH ×3 (00:01→16:09)
[2016-07-10] MEDS: Albuterol/Ipratropium 3.0-0.5 MG/3 ML Neb Soln NEB SCH ×5 (00:08→18:12)
[2016-07-10] MEDS: Dextrose 5%-0.45% NaCl 1,000 ML IV SCH (06:19)
[2016-07-10] MEDS: methylPREDNISolone Sodium Succinate 125 MG/2 ML SDV IVPUSH SCH ×2 (08:21→20:49)
[2016-07-10] MEDS: Divalproex Sodium Delayed-Release 125 MG Cap.Sprink PO SCH ×2 (08:21→17:31)
[2016-07-10] MEDS: Sertraline 50 MG Tab PO SCH (08:22)
[2016-07-10] MEDS: Desmopressin 0.2 MG Tab PO SCH ×2 (08:22→20:49)
--- NOTE | 2016-07-10 13:40 | PCM.PN ---
- General Info Date of Service: 07/10/16 - Review of Systems Systems Review Comment:: History: He had a trial of oral thickened liquids yesterday, did poorly but got most of his medications down, with some coughing. He is not sufficiently lucid to discuss gastrostomy feeding tube, but given his low quality of life family is not very interested in having that. We think that given his past choices that he would probably not want it either. Remains afebrile, still getting IV antibiotic, has perked up mentally. His DDAVP has been increased up to 0.2 mg BID. He is getting Depakote sprinkles now , takes that for bipolar disorder, does not have seizures. He had been on lithium and that was DCd because of the hypernatremia. He was on BiPAP on admission, could not get adequate oximetry readings without that. That has improved and he has been weaned down to high flow oxygen with a mask - Patient Data Vitals - most recent: Last Vital Signs Temp 36.8 C 07/10/16 10:00 Pulse 76 07/10/16 10:00 Resp 26 H 07/10/16 06:00 BP 133/79 07/10/16 10:00 Pulse Ox 90 L 07/10/16 07:07 Weight - most recent: 101.659 kg I&O - last 24 hours: Intake & Output 07/09/16 07/10/16 07/10/16 22:59 06:59 14:59 Intake Total 829 613 0 Output Total 700 825 Balance 129 -212 0 Lab Results last 24 hrs: Laboratory Results - last 24 hr 07/09/16 07/10/16 Range/Units 17:08 06:28 POC Glucose 205 H 195 H (74-106) mg/dL Med Orders - Current: Current Medications Acetaminophen (Tylenol) 650 mg RECTAL Q4H PRN PRN Reason: analgesia/fever Last Admin: 07/08/16 16:49 Dose: 650 mg Albuterol (Proventil Neb Soln) 2.5 mg NEB Q2H PRN PRN Reason: Shortness of Breath Last Admin: 07/07/16 08:49 Dose: 2.5 mg Albuterol/Ipratropium (Duoneb 3.0-0.5 Mg/3 Ml) 3 ml NEB Q6HRRT [facility] Last Admin: 07/10/16 12:50 Dose: 3 ml Desmopressin Acetate (Desmopressin) 0.2 mg PO BID [facility] Last Admin: 07/10/16 08:22 Dose: 0.2 mg Divalproex Sodium (Depakote Sprinkle) 750 mg PO BIDMEALS [facility] Last Admin: 07/10/16 08:21 Dose: 750 mg Heparin Sodium (Porcine) (Heparin Sodium) 5,000 units SUBCUT Q8H [facility] Last Admin: 07/10/16 08:21 Dose: 5,000 units Piperacillin Sod/Tazobactam (Sod 3.375 gm/ Sodium Chloride) 100 mls @ 25 mls/ hr IV Q8H [facility] Last Admin: 07/10/16 08:00 Dose: 25 mls/hr Dextrose/Sodium Chloride (Dextrose 5%-1/2 Ns) 1,000 mls @ 50 mls/hr IV ASDIRECTED [facility] Last Admin: 07/10/16 06:19 Dose: 125 mls/hr Methylprednisolone Sodium Succinate (Solu-Medrol) 125 mg IVPUSH Q12H [facility] Last Admin: 07/10/16 08:21 Dose: 125 mg Sertraline HCl (Zoloft) 50 mg PO DAILY [facility] Last Admin: 07/10/16 08:22 Dose: 50 mg Discontinued Medications Acetaminophen (Tylenol) 650 mg RECTAL NOW ONE Stop: 07/07/16 03:54 Last Admin: 07/07/16 04:40 Dose: 650 mg Albuterol/Ipratropium (Duoneb 3.0-0.5 Mg/3 Ml) 3 ml NEB Q2H PRN PRN Reason: Shortness of Breath Ceftriaxone Sodium (Rocephin) 1 gm IVPUSH ONETIME ONE Stop: 07/07/16 04:20 Last Admin: 07/07/16 04:26 Dose: 1 gm Divalproex Sodium (Divalproex Sodium) 750 mg PO BIDMEALS [facility] Last Admin: 07/09/16 11:49 Dose: Not Given Sodium Chloride (Normal Saline) 1,000 mls @ 100 mls/hr IV ASDIRECTED [facility] Last Admin: 07/07/16 04:05 Dose: 100 mls/hr Sodium Chloride (Sodium Chloride 0.45%) 1,000 mls @ 100 mls/hr IV ASDIRECTED [facility] Last Admin: 07/07/16 16:15 Dose: 100 mls/hr Piperacillin Sod/Tazobactam (Sod 4.5 gm/ Sodium Chloride) 100 mls @ 200 mls/hr IV ONETIME ONE Stop: 07/07/16 08:29 Last Admin: 07/07/16 09:26 Dose: 200 mls/hr Methylprednisolone Sodium Succinate (Solu-Medrol) 125 mg IVPUSH ONETIME ONE Stop: 07/07/16 03:51 Last Admin: 07/07/16 04:23 Dose: 125 mg Sodium Chloride (Saline Flush) 10 ml FLUSH ASDIRECTED PRN PRN Reason: Keep Vein Open - Exam Physical Findings Comments:: Exam: -Using a face mask for oxygen -Tries to answer questions but is quite unintelligible, has always had severe dysarthria -A few coarse rhonchi but lungs otherwise unremarkable, no tachypnea -Heart sounds normal and regular -Abdomen soft, nontender - Problem List Review Problem List Initiated/Reviewed/Updated: Yes - My Orders Last 24 Hours: My Active Orders 07/09/16 14:00 Divalproex Sodium [Depakote Sprinkle] 750 mg PO BIDMEALS 07/11/16 07:30 CXR [Chest 1V Frontal] [CR] Routine BMP [BASIC METABOLIC PANEL,BMP] [CHEM] Routine - Assessment Assessment:: Impression: -Aspiration pneumonia, very obtunded and hypoxic on admission -Severe dysphagia secondary to head injury and tremor -Family wishes treatment to be Simple and they are not in favor of G-tube feeding -Bipolar disorder -Remote (57 years) Hx of head injury -Hypernatremia, 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
[2016-07-11] MEDS: Heparin Sodium 5,000 Units/ML Vial SUBCUT SCH ×3 (01:01→15:26)
[2016-07-11] MEDS: Piperacillin/Tazobactam 3.375 GM in Sodium Chloride 0.9% 100 ML IV SCH ×3 (01:01→15:27)
[2016-07-11] MEDS: Albuterol/Ipratropium 3.0-0.5 MG/3 ML Neb Soln NEB SCH ×4 (01:02→18:19)
[2016-07-11] MEDS: methylPREDNISolone Sodium Succinate 125 MG/2 ML SDV IVPUSH SCH (08:03)
[2016-07-11] MEDS: Dextrose 5%-0.45% NaCl 1,000 ML IV SCH (08:09)
[2016-07-11] MEDS: Divalproex Sodium Delayed-Release 125 MG Cap.Sprink PO SCH ×2 (08:47→18:19)
[2016-07-11] MEDS: Desmopressin 0.2 MG Tab PO SCH ×2 (08:51→21:39)
[2016-07-11] MEDS: Sertraline 50 MG Tab PO SCH (08:54)
[2016-07-11] MEDS: Dextrose 5% in Water 1,000 ML IV SCH ×2 (09:42→23:03)
--- NOTE | 2016-07-11 14:14 | PCM.PN ---
- General Info Date of Service: 07/11/16 - Review of Systems Systems Review Comment:: History: In spite of his severe dysphagia, we have been able to get some of his medications in with thickened liquids, including his Depakote sprinkles, and an increased dose of DDAVP, now 0.2 mg BID. In spite of this, his Na+ has gone from 167 up to 177, he is more lethargic and less alert again today. His CXR this morning shows increased Rsided infiltrate from previous. He remains afebrile. He is not on BiPAP now, has satisfactory oximetry on nonrebreather with oxygen at 15 L/min. His creatinine is up to 2.5 and BUN to 92. - Patient Data Vitals - most recent: Last Vital Signs Temp 36.4 C 07/11/16 09:50 Pulse 63 07/11/16 05:40 Resp 20 07/11/16 09:50 BP 117/68 07/11/16 05:40 Pulse Ox 90 L 07/11/16 08:26 Weight - most recent: 101.659 kg I&O - last 24 hours: Intake & Output 07/10/16 07/11/16 07/11/16 22:59 06:59 14:59 Intake Total 165 500 Output Total 700 1000 350 Balance -535 -500 -350 Lab Results last 24 hrs: Laboratory Results - last 24 hr 07/10/16 07/10/16 07/11/16 Range/Units 17:04 20:46 06:12 Sodium (136-145) mmol/L Potassium (3.5-5.1) mmol/L Chloride (98-107) mmol/L Carbon Dioxide (21-32) mmol/L BUN (7-18) mg/dL Creatinine (0.70-1.30) mg/dL Est Cr Clr Drug Dosing mL/min Estimated GFR (MDRD) Glucose (74-106) mg/dL POC Glucose 203 H 166 H 243 H (74-106) mg/dL Calcium (8.5-10.1) mg/dL 07/11/16 Range/Units 06:47 Sodium 177 H* (136-145) mmol/L Potassium 4.3 (3.5-5.1) mmol/L Chloride 141 H (98-107) mmol/L Carbon Dioxide 32 (21-32) mmol/L BUN 92 H* (7-18) mg/dL Creatinine 2.5 H (0.70-1.30) mg/dL Est Cr Clr Drug Dosing 27.29 mL/min Estimated GFR (MDRD) 26 Glucose 254 H (74-106) mg/dL POC Glucose (74-106) mg/dL Calcium 9.9 (8.5-10.1) mg/dL Med Orders - Current: Current Medications Acetaminophen (Tylenol) 650 mg RECTAL Q4H PRN PRN Reason: analgesia/fever Last Admin: 07/08/16 16:49 Dose: 650 mg Albuterol (Proventil Neb Soln) 2.5 mg NEB Q2H PRN PRN Reason: Shortness of Breath Last Admin: 07/07/16 08:49 Dose: 2.5 mg Albuterol/Ipratropium (Duoneb 3.0-0.5 Mg/3 Ml) 3 ml NEB Q6HRRT [facility] Last Admin: 07/11/16 12:43 Dose: 3 ml Desmopressin Acetate (Desmopressin) 0.2 mg PO BID [facility] Last Admin: 07/11/16 08:51 Dose: 0.2 mg Divalproex Sodium (Depakote Sprinkle) 750 mg PO BIDMEALS [facility] Last Admin: 07/11/16 08:47 Dose: 750 mg Heparin Sodium (Porcine) (Heparin Sodium) 5,000 units SUBCUT Q8H [facility] Last Admin: 07/11/16 08:55 Dose: 5,000 units Piperacillin Sod/Tazobactam (Sod 3.375 gm/ Sodium Chloride) 100 mls @ 25 mls/ hr IV Q8H [facility] Last Admin: 07/11/16 08:05 Dose: 25 mls/hr Dextrose/Water (Dextrose 5% In Water) 1,000 mls @ 75 mls/hr IV ASDIRECTED [facility] Last Admin: 07/11/16 09:42 Dose: 75 mls/hr Sertraline HCl (Zoloft) 50 mg PO DAILY [facility] Last Admin: 07/11/16 08:54 Dose: 50 mg Discontinued Medications Acetaminophen (Tylenol) 650 mg RECTAL NOW ONE Stop: 07/07/16 03:54 Last Admin: 07/07/16 04:40 Dose: 650 mg Albuterol/Ipratropium (Duoneb 3.0-0.5 Mg/3 Ml) 3 ml NEB Q2H PRN PRN Reason: Shortness of Breath Ceftriaxone Sodium (Rocephin) 1 gm IVPUSH ONETIME ONE Stop: 07/07/16 04:20 Last Admin: 07/07/16 04:26 Dose: 1 gm Divalproex Sodium (Divalproex Sodium) 750 mg PO BIDMEALS [facility] Last Admin: 07/09/16 11:49 Dose: Not Given Sodium Chloride (Normal Saline) 1,000 mls @ 100 mls/hr IV ASDIRECTED [facility] Last Admin: 07/07/16 04:05 Dose: 100 mls/hr Sodium Chloride (Sodium Chloride 0.45%) 1,000 mls @ 100 mls/hr IV ASDIRECTED [facility] Last Admin: 07/07/16 16:15 Dose: 100 mls/hr Piperacillin Sod/Tazobactam (Sod 4.5 gm/ Sodium Chloride) 100 mls @ 200 mls/hr IV ONETIME ONE Stop: 07/07/16 08:29 Last Admin: 07/07/16 09:26 Dose: 200 mls/hr Dextrose/Sodium Chloride (Dextrose 5%-1/2 Ns) 1,000 mls @ 50 mls/hr IV ASDIRECTED [facility] Last Admin: 07/11/16 08:09 Dose: 125 mls/hr Methylprednisolone Sodium Succinate (Solu-Medrol) 125 mg IVPUSH ONETIME ONE Stop: 07/07/16 03:51 Last Admin: 07/07/16 04:23 Dose: 125 mg Methylprednisolone Sodium Succinate (Solu-Medrol) 125 mg IVPUSH Q12H [facility] Last Admin: 07/11/16 08:03 Dose: 125 mg Sodium Chloride (Saline Flush) 10 ml FLUSH ASDIRECTED PRN PRN Reason: Keep Vein Open - Exam Physical Findings Comments:: Exam: -He opens eyes but doesnt seem to understand what is spoken to him -Breathing is not labored but lung sounds are rough -Heart sounds normal and regular -Afebrile, BP OK - Problem List Review Problem List Initiated/Reviewed/Updated: Yes - My Orders Last 24 Hours: My Active Orders 07/11/16 07:30 CXR [Chest 1V Frontal] [CR] Routine 07/11/16 09:30 Dextrose 5% in Water 1,000 ml IV ASDIRECTED 07/12/16 07:30 BASIC METABOLIC PANEL,BMP [CHEM] Routine - Assessment Assessment:: Impression: -[place] is grim, renal function seems to be decreasing, hypernatremia worsening -Pneumonia worsening - Plan Plan:: Plan: -Discussed with his sister, in view of his poor prognosis they are willing to consider Comfort Care status -Stop IV saline and give D5W only at 75 mL/hour -Continue Zosyn IV -Get BMP again tomorrow
[2016-07-12] MEDS: Heparin Sodium 5,000 Units/ML Vial SUBCUT SCH ×2 (00:07→08:21)
[2016-07-12] MEDS: Piperacillin/Tazobactam 3.375 GM in Sodium Chloride 0.9% 100 ML IV SCH ×2 (00:07→08:24)
[2016-07-12] MEDS: Albuterol/Ipratropium 3.0-0.5 MG/3 ML Neb Soln NEB SCH ×3 (00:10→13:45)
[2016-07-12] MEDS: Divalproex Sodium Delayed-Release 125 MG Cap.Sprink PO SCH ×2 (08:22→17:57)
[2016-07-12] MEDS: Sertraline 50 MG Tab PO SCH (08:24)
[2016-07-12] MEDS: Desmopressin 0.2 MG Tab PO SCH (08:24)
[2016-07-12] MEDS ORDERED: Insulin Aspart 100 Units/ML 3 ML Pen SUBCUT ONE (08:35)
[2016-07-12] MEDS ORDERED: Spironolactone 25 MG Tab PO ONE (08:48)
[2016-07-12] MEDS: Dextrose 5% in Water 1,000 ML IV SCH (12:24)
[2016-07-12] MEDS ORDERED: LORazepam 2 MG/ML MDV IVPUSH SCH (14:00)
[2016-07-12] MEDS ORDERED: Ondansetron 4 MG Tab.DIS PO PRN (14:45)
[2016-07-12] MEDS ORDERED: LORazepam 0.5 MG Tab PO PRN (14:46)
[2016-07-12] MEDS ORDERED: Ondansetron 4 MG/2 ML SDV IV PRN (14:46)
[2016-07-12] MEDS ORDERED: Dextran 70/Hypromellose/PF Ophth Soln 0.9 ML UD EYEBOTH PRN (14:48)
[2016-07-12] MEDS ORDERED: ARTIFICIAL SALIVA PO PRN (14:49)
[2016-07-12] MEDS: LORazepam 2 MG/ML MDV IVPUSH SCH ×2 (14:50→20:01)
[2016-07-12] MEDS ORDERED: LORazepam 2 MG/ML MDV IVPUSH PRN (17:11)
--- NOTE | 2016-07-12 17:23 | PCM.PN ---
- General Info Date of Service: 07/12/16 Subjective Update: He is getting D5W now at 50 ml/hr, DDAVP 0.2 mg BID p.o. and has been taking his medications even though does not swallow well. He remains aware of people in the room, tries to answer, but as before is severely dysarthric, and now even more so. In spite of the above Rx his hypernatremia is worse, Na+ has gone from 177 up to 181. His renal function is very poor, last creat was 2.5, BUN 92 and GFR 26. 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 Family is aware of his grim prognosis and are ready to consider Comfor Care only if it appears he will not survive. He continues to get Zosyn for pneumonia, is R-sided infiltrate looked worse yesterday. - Patient Data Vitals - most recent: Last Vital Signs Temp 36.7 C 07/12/16 14:12 Pulse 80 07/12/16 14:12 Resp 24 H 07/12/16 14:12 BP 122/77 07/12/16 14:12 Pulse Ox 91 L 07/12/16 14:12 Weight - most recent: 101.659 kg I&O - last 24 hours: Intake & Output 07/12/16 07/12/16 07/12/16 06:59 14:59 22:59 Intake Total 1000 1457 Output Total 1250 Balance -250 1457 Lab Results last 24 hrs: Laboratory Results - last 24 hr 07/11/16 07/12/16 Range/Units 21:31 06:27 Sodium 181 H* (136-145) mmol/L Potassium 3.8 (3.5-5.1) mmol/L Chloride 141 H (98-107) mmol/L Carbon Dioxide 31 (21-32) mmol/L BUN 82 H* (7-18) mg/dL Creatinine 2.2 H (0.70-1.30) mg/dL Est Cr Clr Drug Dosing 31.01 mL/min Estimated GFR (MDRD) 30 Glucose 172 H (74-106) mg/dL POC Glucose 235 H (74-106) mg/dL Calcium 9.7 (8.5-10.1) mg/dL Med Orders - Current: Current Medications Acetaminophen (Tylenol) 650 mg RECTAL Q4H PRN PRN Reason: analgesia/fever Last Admin: 07/08/16 16:49 Dose: 650 mg Artificial Tears (Tears Naturale Free) 0 each EYEBOTH ASDIRECTED PRN PRN Reason: DRY EYES/COMFORT Atropine Sulfate (Atropine) 0.4 - 1 mg SUBCUT Q3H PRN PRN Reason: COPIOUS SECRETIONS Divalproex Sodium (Depakote Sprinkle) 750 mg PO BIDMEALS [facility] Last Admin: 07/12/16 08:22 Dose: 750 mg Hydromorphone HCl (Dilaudid) 1 mg IVPUSH Q2H PRN PRN Reason: Pain Lorazepam (Ativan) 0.5 mg IVPUSH Q6H [facility] Last Admin: 07/12/16 14:50 Dose: 0.5 mg Lorazepam (Ativan) 0.5 - 1 mg PO Q4H PRN PRN Reason: RESTLESSNESS/ANXIETY Lorazepam (Ativan) 2 mg IVPUSH ONETIME PRN PRN Reason: Seizures Artificial Saliva 0 each PO ASDIRECTED PRN PRN Reason: DRY MOUTH/COMFORT Ondansetron HCl (Zofran Odt) 4 mg PO Q4H PRN PRN Reason: NAUSEA Ondansetron HCl (Zofran) 4 mg IV Q4H PRN PRN Reason: NAUSEA Sertraline HCl (Zoloft) 50 mg PO DAILY [facility] Last Admin: 07/12/16 08:24 Dose: 50 mg Discontinued Medications Acetaminophen (Tylenol) 650 mg RECTAL NOW ONE Stop: 07/07/16 03:54 Last Admin: 07/07/16 04:40 Dose: 650 mg Albuterol (Proventil Neb Soln) 2.5 mg NEB Q2H PRN PRN Reason: Shortness of Breath Last Admin: 07/07/16 08:49 Dose: 2.5 mg Albuterol/Ipratropium (Duoneb 3.0-0.5 Mg/3 Ml) 3 ml NEB Q2H PRN PRN Reason: Shortness of Breath Albuterol/Ipratropium (Duoneb 3.0-0.5 Mg/3 Ml) 3 ml NEB Q6HRRT [facility] Last Admin: 07/12/16 13:45 Dose: Not Given Ceftriaxone Sodium (Rocephin) 1 gm IVPUSH ONETIME ONE Stop: 07/07/16 04:20 Last Admin: 07/07/16 04:26 Dose: 1 gm Desmopressin Acetate (Desmopressin) 0.2 mg PO BID [facility] Last Admin: 07/12/16 08:24 Dose: 0.2 mg Divalproex Sodium (Divalproex Sodium) 750 mg PO BIDMEALS [facility] Last Admin: 07/09/16 11:49 Dose: Not Given Heparin Sodium (Porcine) (Heparin Sodium) 5,000 units SUBCUT Q8H [facility] Last Admin: 07/12/16 08:21 Dose: 5,000 units Sodium Chloride (Normal Saline) 1,000 mls @ [facility] Last Admin: 07/07/16 04:05 Dose: 100 mls/hr Sodium Chloride (Sodium Chloride 0.45%) 1,000 mls [facility] Last Admin: 07/07/16 16:15 Dose: 100 mls/hr Piperacillin Sod/Tazobactam (Sod 4.5 gm/ Sodium Chloride) 100 mls @ 200 mls/hr IV ONETIME ONE Stop: 07/07/16 08:29 Last Admin: 07/07/16 09:26 Dose: 200 mls/hr Piperacillin Sod/Tazobactam (Sod 3.375 gm/ Sodium Chloride) 100 mls @ 25 mls/ hr IV Q8H [facility] Last Admin: 07/12/16 08:24 Dose: 25 mls/hr Dextrose/Sodium Chloride (Dextrose 5%-1/2 Ns) 1,000 mls @ 50 mls/hr IV [facility] Last Admin: 07/11/16 08:09 Dose: 125 mls/hr Dextrose/Water (Dextrose 5% In Water) 1,000 mls @ 75 [facility]ls[facility]hr [facility] Last Admin: 07/12/16 12:24 Dose: 75 mls/hr Insulin Aspart (Novolog) 5 unit SUBCUT ONETIME ONE Stop: 07/12/16 08:36 Last Admin: 07/12/16 09:14 Dose: 5 units Lorazepam (Ativan) 0.5 mg IVPUSH Q12H [facility] Last Admin: 07/12/16 15:00 Dose: Not Given Methylprednisolone Sodium Succinate (Solu-Medrol) 125 mg IVPUSH ONETIME ONE Stop: 07/07/16 03:51 Last Admin: 07/07/16 04:23 Dose: 125 mg Methylprednisolone Sodium Succinate (Solu-Medrol) 125 mg IVPUSH Q12H [facility] Last Admin: 07/11/16 08:03 Dose: 125 mg Sodium Chloride (Saline Flush) 10 ml FLUSH ASDIRECTED PRN PRN Reason: Keep Vein Open Spironolactone (Aldactone) 25 mg PO ONETIME ONE Stop: 07/12/16 08:49 Last Admin: 07/12/16 09:14 Dose: 25 mg - Exam Physical Findings Comments:: Exam: -Very dysarthric, sems as though he is disoriented, though does try to speak -VS OK, incl. BP. Remains afebrile. -Does not appear dyspnic but lung sounds are rough and somewhat high-pitched R anterior. -Heart sounds regular -Abdomen mildly distended, but not tender and bowel sounds are normal. - Problem List Review Problem List Initiated/Reviewed/Updated: Yes - My Orders Last 24 Hours: My Active Orders 07/12/16 09:48 OSMOLALITY - URINE Urgent - Assessment Assessment:: Impression: -[place] is grim, renal function seems to be decreasing, hypernatremia worsening even since 07/11 -Hypernatremia probably from his progressive kidney failure, with nephrogenic diabetes insipidus -Not a candidate for dialysis -Pneumonia worsening - Plan Plan:: Plan: -Ask Dr. Courtney Johnston, Int. Med., so see in consult re any hope for recovery, or is we should make him Comfor Care -She will see him at noon. -Get urine osmolality, to help decide if it's diabetes insipidus
--- NOTE | 2016-07-12 19:24 | CONS ---
DATE OF CONSULTATION: 07/12/2016 Hospital consultation. REQUESTING PROVIDER: Dr. Cowart. REASON FOR CONSULTATION: Worsening hypernatremic. HISTORY OF PRESENT ILLNESS: This is a 61-year-old resident of [facility] for the last couple years. Prior to that, he lived at [facility] after falling as a kid and injuring his head around age 5. He has had long-standing dysphagia and had been admitted for aspiration pneumonia on 06/26 and then readmitted again on 07/07 with fever, respiratory distress and unresponsive. The patient had also been found on this admission to have severe hypernatremia up to 166 which was not present previously. His sodium yesterday had increased up to 177, he was switched over to D5 water at 70 mL/h, but his sodium still went up to 181. He was also given DDAVP. He had been started on lithium, but it was stopped by Dr. Cowart recently after realizing of the hypernatremia was occurring. He has been more lethargic. He has been unable to take much oral intake. Feeding tube was recommended, but the family had declined. He has been on IV antibiotics on this admission with Zosyn, but still his respiratory status has worsened to the point where he initially was on BiPAP, but now is on a non-rebreather 14 L to keep his saturations above 90. He has not had any seizure activity, but appears to be doing some twitching. Family do not feel he is in any discomfort currently, but he was more restless yesterday. Tavares was unresponsive to my questions, but his eyes were open. He did close them occasionally briefly, but was able to be awoken to voice. 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 PAST MEDICAL HISTORY: Includes traumatic brain injury in 1958. 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 He has had previous nonorganic enuresis and got DDAVP, but was not able to tolerate it. He has had osteopenia. He has had otitis externa. He has had exotropia of the left eye. He has had previous bilateral hip replacements, scoliosis, spastic quadriparesis, dysphasia since 2013, bipolar disorder followed by psychiatry, delusional disorder. PAST SURGICAL HISTORY: His surgical history as above. FAMILY HISTORY: He has at least 2 sisters who are alive and well. SOCIAL HISTORY: Again, he lives in [facility]. ALLERGIES: Red dye. MEDICATION: List is reviewed. In the hospital, he was currently on Zosyn. He was on Zofran for nausea. He was on Tylenol as needed. He was on Zoloft 50 mg daily. He was given a dose of Aldactone and the insulin this morning in an attempt to see if it may improve sodium given his hyperglycemia, although I do not see any previous diagnosis of diabetes. Blood sugars had consistently been in the upper 100 to even 300. He had not been getting steroids today. REVIEW OF SYSTEMS: Completely unobtainable from the patient due to cognitive impairment and lethargy. PHYSICAL EXAMINATION: Vital Signs: The patient had a temperature of 96.9, pulse 82, blood pressure 120/78, respiratory rate 32, O2 of 91 on the 14 L. General: He did not appear to be in any acute distress, but was mildly tachypneic. He did not appear to be struggling for respirations, but was on a non-rebreather mask. Heart: Regular rate and rhythm. S1, S2 without murmur. Lungs: Sounds were decreased throughout with poor respiratory effort. The patient did not really cooperate with the exam. I did hear some rare expiratory rhonchi noted, but no wheezing. The rhonchi were noted over the right base. Abdomen: Nondistended, nontender. Extremities: Warm and dry. No edema. He had no 3rd spacing. LABORATORY DATA: Lab work reviewed from this morning, again showed the sodium 181, potassium 3.8, chloride 141, bicarb 31, BUN 82, creatinine 2.2, glucose 172, calcium 9.7. ASSESSMENT AND PLAN: 1. Severe hypernatremic, now over 181 with free-water deficit of 13 L. I discussed with his sister and [id number] that we would have to give him a significant amount of fluids which may only worsen his respiratory status to try to improve the sodium. We could do that also by placing an NG or G- tube, but still that would not fix his problem with the aspiration as he would still be at risk for aspiration pneumonia. At this point, they had already discussed comfort care measures with Dr. Cowart and they just wanted him to be comfortable. So, at this point, we discontinued aggressive treatments. I also discontinued the DDAVP and IV antibiotics. He should continue oxygen for comfort. 2. Acute renal failure in the setting of pneumonia. May have improved somewhat with more fluids given there was a slight improvement since yesterday. However, I think his respiratory status was worsened by fluids with the bilateral pneumonia probably being an element of some pulmonary edema as well. Could consider BNP and cardiac workup, but again the goals of his care or comfort; therefore, no further workup will be a taken. 3. Acute hypoxic respiratory failure due to aspiration pneumonia which is recurrent. 4. History of traumatic brain injury. 5. Tremor. I am worried that some of this tremor could be coming from the severe hypernatremia. I am going to schedule him on Ativan to hopefully prevent any seizures and have p.r.n. Ativan available. I will also order Dilaudid for comfort. 6. Anemia which occurred after admission. He had no signs of bleeding, could be some hemo-dilution as well. At this point, heparin for DVT prophylaxis was discontinued and no further monitoring of blood counts will be undertaken. PLAN: At this point, the patient will remain under acute cares, under acute comfort majors. Further blood sugar checks will be discontinued. Dr. Cowart is updated and will continue to follow the patient. We will do vitals just once daily and as needed for comfort, frequent turns, and comfort medicines like atropine will also be available. We will give him oral medications of valproic acid if able to take to help prevent seizures and also Zoloft if able to take as it might also provide some comfort. I do not feel any Lasix is indicated for comfort right now. MKA: 07/12/2016 17:21:57 MODL: 07/12/2016 19:15:15 /[id number]
[2016-07-13] MEDS: LORazepam 2 MG/ML MDV IVPUSH SCH ×4 (02:43→20:55)
[2016-07-13] MEDS: HYDROmorphone 1 MG/ML Syringe IVPUSH PRN ×2 (06:16→19:55)
[2016-07-13] MEDS: Sertraline 50 MG Tab PO SCH (08:47)
[2016-07-13] MEDS: Divalproex Sodium Delayed-Release 125 MG Cap.Sprink PO SCH ×2 (08:47→17:31)
[2016-07-13] MEDS: Acetaminophen 650 MG Supp RECTAL PRN (08:48)
[2016-07-13] MEDS ORDERED: Atropine 1% Ophth Soln 5 ML Bottle SL PRN (09:17)
--- NOTE | 2016-07-13 09:30 | PCM.PN ---
- General Info Date of Service: 07/13/16 Subjective Update: After his continued deterioration and continually rising serum Na+, he had consultation yesterday from Dr. Johnston, Internal Medicine, and she felt that given his repeated aspiration pneumonia, probably inability to tolerate a massive infusion of free water, and his progressive renal failure, that his prognosis was nil, and he was put on Comfort Care. He is continuing to get that in the hospital because he has certainly not stabilized yet. He is more obtunded today, was not able to take any of his medications. For agitation and dyspnea he has Ativan ordered IV now, and still has a saline lock for giving that. No further lab is planned. He is not wincing or showing any distress by moving his arms, is moaning during respiration but I think that is partly a habit. - Patient Data Vitals - most recent: Last Vital Signs Temp 36.7 C 07/12/16 14:12 Pulse 80 07/12/16 14:12 Resp 24 H 07/12/16 14:12 BP 122/77 07/12/16 14:12 Pulse Ox 88 L 07/13/16 08:00 Weight - most recent: 101.659 kg I&O - last 24 hours: Intake & Output 07/12/16 07/13/16 07/13/16 22:59 06:59 14:59 Output Total 500 750 Balance -500 -750 Lab Results last 24 hrs: Laboratory Results - last 24 hr 07/12/16 07/12/16 07/12/16 Range/Units 06:04 09:48 16:52 POC Glucose 172 H 124 H (74-106) mg/dL Urine Osmolality 587 (300-900) mosm/kg Med Orders - Current: Current Medications Acetaminophen (Tylenol) 650 mg RECTAL Q4H PRN PRN Reason: analgesia/fever Last Admin: 07/13/16 08:48 Dose: 650 mg Artificial Tears (Tears Naturale Free) 0 each EYEBOTH ASDIRECTED PRN PRN Reason: DRY EYES/COMFORT Atropine Sulfate (Atropine) 0.4 - 1 mg SUBCUT Q3H PRN PRN Reason: COPIOUS SECRETIONS Divalproex Sodium (Depakote Sprinkle) 750 mg PO BIDMEALS [facility] Last Admin: 07/13/16 08:47 Dose: Not Given Hydromorphone HCl (Dilaudid) 1 mg IVPUSH Q2H PRN PRN Reason: Pain Last Admin: 07/13/16 06:16 Dose: 1 mg Lorazepam (Ativan) 0.5 mg IVPUSH Q6H [facility] Last Admin: 07/13/16 09:13 Dose: 0.5 mg Lorazepam (Ativan) 0.5 - 1 mg PO Q4H PRN PRN Reason: RESTLESSNESS/ANXIETY Last Admin: 07/13/16 06:16 Dose: 1 mg Lorazepam (Ativan) 2 mg IVPUSH ONETIME PRN PRN Reason: Seizures Artificial Saliva 0 each PO ASDIRECTED PRN PRN Reason: DRY MOUTH/COMFORT Ondansetron HCl (Zofran Odt) 4 mg PO Q4H PRN PRN Reason: NAUSEA Ondansetron HCl (Zofran) 4 mg IV Q4H PRN PRN Reason: NAUSEA Sertraline HCl (Zoloft) 50 mg PO DAILY [facility] Last Admin: 07/13/16 08:47 Dose: Not Given Discontinued Medications Acetaminophen (Tylenol) 650 mg RECTAL NOW ONE Stop: 07/07/16 03:54 Last Admin: 07/07/16 04:40 Dose: 650 mg Albuterol (Proventil Neb Soln) 2.5 mg NEB Q2H PRN PRN Reason: Shortness of Breath Last Admin: 07/07/16 08:49 Dose: 2.5 mg Albuterol/Ipratropium (Duoneb 3.0-0.5 Mg/3 Ml) 3 ml NEB Q2H PRN PRN Reason: Shortness of Breath Albuterol/Ipratropium (Duoneb 3.0-0.5 Mg/3 Ml) 3 ml NEB Q6HRRT [facility] Last Admin: 07/12/16 13:45 Dose: Not Given Ceftriaxone Sodium (Rocephin) 1 gm IVPUSH ONETIME ONE Stop: 07/07/16 04:20 Last Admin: 07/07/16 04:26 Dose: 1 gm Desmopressin Acetate (Desmopressin) 0.2 mg PO BID [facility] Last Admin: 07/12/16 08:24 Dose: 0.2 mg Divalproex Sodium (Divalproex Sodium) 750 mg PO BIDMEALS [facility] Last Admin: 07/09/16 11:49 Dose: Not Given Heparin Sodium (Porcine) (Heparin Sodium) 5,000 units SUBCUT Q8H [facility] Last Admin: 07/12/16 08:21 Dose: 5,000 units Sodium Chloride (Normal Saline) 1,000 mls @ 100 mls/hr IV ASDIRECTED [facility] Last Admin: 07/07/16 04:05 Dose: 100 mls/hr Sodium Chloride (Sodium Chloride 0.45%) 1,000 mls @ 100 mls/hr IV ASDIRECTED [facility] Last Admin: 07/07/16 16:15 Dose: 100 mls/hr Piperacillin Sod/Tazobactam (Sod 4.5 gm/ Sodium Chloride) 100 mls @ 200 mls/hr IV ONETIME ONE Stop: 07/07/16 08:29 Last Admin: 07/07/16 09:26 Dose: 200 mls/hr Piperacillin Sod/Tazobactam (Sod 3.375 gm/ Sodium Chloride) 100 mls @ 25 mls/ hr IV Q8H [facility] Last Admin: 07/12/16 08:24 Dose: 25 mls/hr Dextrose/Sodium Chloride (Dextrose 5%-1/2 Ns) 1,000 mls @ 50 mls/hr IV ASDIRECTED [facility] Last Admin: 07/11/16 08:09 Dose: 125 mls/hr Dextrose/Water (Dextrose 5% In Water) 1,000 mls @ 75 mls/hr IV ASDIRECTED [facility] Last Admin: 07/12/16 12:24 Dose: 75 mls/hr Insulin Aspart (Novolog) 5 unit SUBCUT ONETIME ONE Stop: 07/12/16 08:36 Last Admin: 07/12/16 09:14 Dose: 5 units Lorazepam (Ativan) 0.5 mg IVPUSH Q12H [facility] Last Admin: 07/12/16 15:00 Dose: Not Given Methylprednisolone Sodium Succinate (Solu-Medrol) 125 mg IVPUSH ONETIME ONE Stop: 07/07/16 03:51 Last Admin: 07/07/16 04:23 Dose: 125 mg Methylprednisolone Sodium Succinate (Solu-Medrol) 125 mg IVPUSH Q12H [facility] Last Admin: 07/11/16 08:03 Dose: 125 mg Sodium Chloride (Saline Flush) 10 ml FLUSH ASDIRECTED PRN PRN Reason: Keep Vein Open Spironolactone (Aldactone) 25 mg PO ONETIME ONE Stop: 07/12/16 08:49 Last Admin: 07/12/16 09:14 Dose: 25 mg - Exam Physical Findings Comments:: Exam: -Eyes are partially open but does not indicate awareness of people in the room -Respiratory rate is normal, continues to get 15 L of oxygen to keep his saturation at 90 -Soft moaning, no other signs of distress. -Lungs sound coarse but no fine rales - Problem List Review Problem List Initiated/Reviewed/Updated: Yes - Assessment Assessment:: Impression: -On comfort care for terminal renal failure with hypernatremia -Seems comfortable but not sufficiently stable to go back to [facility] -With no oral intake possible, survival past couple days it is unlikely - Plan Plan:: Plan: -Continue comfort care -Rely mainly on Ativan IV for agitation and discomfort
[2016-07-13 09:42] VITALS: BP 120/68
[2016-07-13] MEDS: Atropine 0.4 MG/ML 20 ML MDV SUBCUT PRN ×2 (12:50→18:30)
[2016-07-14] MEDS: HYDROmorphone 1 MG/ML Syringe IVPUSH PRN ×3 (01:32→08:28)
[2016-07-14] MEDS: LORazepam 2 MG/ML MDV IVPUSH SCH ×2 (02:38→08:22)
[2016-07-14] MEDS: Divalproex Sodium Delayed-Release 125 MG Cap.Sprink PO SCH (07:39)
[2016-07-14] MEDS: Sertraline 50 MG Tab PO SCH (07:40)
[2016-07-14] MEDS: Acetaminophen 650 MG Supp RECTAL PRN (08:31)
--- NOTE | 2016-07-14 09:48 | PCM.PN ---
- General Info Date of Service: 07/14/16 Subjective Update: Continues on comfort care, breathing erratically and has a temp of 101, family is here at bedside. He has Tylenol for fever, Dilaudid for pain, and Ativan for agitation, but seems quite deeply comatose now. Family is grateful that we did not try sending him back to [facility]. - Patient Data Vitals - most recent: Last Vital Signs Temp 37.7 C 07/14/16 09:36 Pulse 123 H 07/14/16 08:36 Resp 12 07/14/16 08:36 BP 120/68 07/13/16 08:15 Pulse Ox 72 L 07/14/16 08:36 Weight - most recent: 101.659 kg I&O - last 24 hours: Intake & Output 07/13/16 07/14/16 07/14/16 22:59 06:59 14:59 Output Total 400 250 Balance -400 -250 Med Orders - Current: Current Medications Acetaminophen (Tylenol) 650 mg RECTAL Q4H PRN PRN Reason: analgesia/fever Last Admin: 07/14/16 08:31 Dose: 650 mg Artificial Tears (Tears Naturale Free) 0 each EYEBOTH ASDIRECTED PRN PRN Reason: DRY EYES/COMFORT Atropine Sulfate (Atropine) 0.4 - 1 mg SUBCUT Q3H PRN PRN Reason: COPIOUS SECRETIONS Last Admin: 07/13/16 18:30 Dose: 1 mg Atropine Sulfate (Isopto Atropine 1% Ophth Soln) 0.4 - 1 ml SL Q3H PRN PRN Reason: COPIOUS SECRETIONS Divalproex Sodium (Depakote Sprinkle) 750 mg PO BIDMEALS [facility] Last Admin: 07/14/16 07:39 Dose: Not Given Hydromorphone HCl (Dilaudid) 1 mg IVPUSH Q2H PRN PRN Reason: Pain Last Admin: 07/14/16 08:28 Dose: 1 mg Lorazepam (Ativan) 0.5 mg IVPUSH Q6H [facility] Last Admin: 07/14/16 08:22 Dose: 0.5 mg Lorazepam (Ativan) 0.5 - 1 mg PO Q4H PRN PRN Reason: RESTLESSNESS/ANXIETY Last Admin: 07/13/16 06:16 Dose: 1 mg Lorazepam (Ativan) 2 mg IVPUSH ONETIME PRN PRN Reason: Seizures Last Admin: 07/13/16 18:30 Dose: 2 mg Artificial Saliva 0 each PO ASDIRECTED PRN PRN Reason: DRY MOUTH/COMFORT Ondansetron HCl (Zofran Odt) 4 mg PO Q4H PRN PRN Reason: NAUSEA Ondansetron HCl (Zofran) 4 mg IV Q4H PRN PRN Reason: NAUSEA Sertraline HCl (Zoloft) 50 mg PO DAILY [facility] Last Admin: 07/14/16 07:40 Dose: Not Given Discontinued Medications Acetaminophen (Tylenol) 650 mg RECTAL NOW ONE Stop: 07/07/16 03:54 Last Admin: 07/07/16 04:40 Dose: 650 mg Albuterol (Proventil Neb Soln) 2.5 mg NEB Q2H PRN PRN Reason: Shortness of Breath Last Admin: 07/07/16 08:49 Dose: 2.5 mg Albuterol/Ipratropium (Duoneb 3.0-0.5 Mg/3 Ml) 3 ml NEB Q2H PRN PRN Reason: Shortness of Breath Albuterol/Ipratropium (Duoneb 3.0-0.5 Mg/3 Ml) 3 ml NEB Q6HRRT [facility] Last Admin: 07/12/16 13:45 Dose: Not Given Ceftriaxone Sodium (Rocephin) 1 gm IVPUSH ONETIME ONE Stop: 07/07/16 04:20 Last Admin: 07/07/16 04:26 Dose: 1 gm Desmopressin Acetate (Desmopressin) 0.2 mg PO BID [facility] Last Admin: 07/12/16 08:24 Dose: 0.2 mg Divalproex Sodium (Divalproex Sodium) 750 mg PO BIDMEALS [facility] Last Admin: 07/09/16 11:49 Dose: Not Given Heparin Sodium (Porcine) (Heparin Sodium) 5,000 units SUBCUT Q8H [facility] Last Admin: 07/12/16 08:21 Dose: 5,000 units Sodium Chloride (Normal Saline) 1,000 mls @ 100 mls/hr IV ASDIRECTED [facility] Last Admin: 07/07/16 04:05 Dose: 100 mls/hr Sodium Chloride (Sodium Chloride 0.45%) 1,000 mls @ 100 mls/hr IV ASDIRECTED [facility] Last Admin: 07/07/16 16:15 Dose: 100 mls/hr Piperacillin Sod/Tazobactam (Sod 4.5 gm/ Sodium Chloride) 100 mls @ 200 mls/hr IV ONETIME ONE Stop: 07/07/16 08:29 Last Admin: 07/07/16 09:26 Dose: 200 mls/hr Piperacillin Sod/Tazobactam (Sod 3.375 gm/ Sodium Chloride) 100 mls @ 25 mls/ hr IV Q8H [facility] Last Admin: 07/12/16 08:24 Dose: 25 mls/hr Dextrose/Sodium Chloride (Dextrose 5%-1/2 Ns) 1,000 mls @ 50 mls/hr IV ASDIRECTED [facility] Last Admin: 07/11/16 08:09 Dose: 125 mls/hr Dextrose/Water (Dextrose 5% In Water) 1,000 mls @ 75 mls/hr IV ASDIRECTED [facility] Last Admin: 07/12/16 12:24 Dose: 75 mls/hr Insulin Aspart (Novolog) 5 unit SUBCUT ONETIME ONE Stop: 07/12/16 08:36 Last Admin: 07/12/16 09:14 Dose: 5 units Lorazepam (Ativan) 0.5 mg IVPUSH Q12H [facility] Last Admin: 07/12/16 15:00 Dose: Not Given Methylprednisolone Sodium Succinate (Solu-Medrol) 125 mg IVPUSH ONETIME ONE Stop: 07/07/16 03:51 Last Admin: 07/07/16 04:23 Dose: 125 mg Methylprednisolone Sodium Succinate (Solu-Medrol) 125 mg IVPUSH Q12H [facility] Last Admin: 07/11/16 08:03 Dose: 125 mg Sodium Chloride (Saline Flush) 10 ml FLUSH ASDIRECTED PRN PRN Reason: Keep Vein Open Spironolactone (Aldactone) 25 mg PO ONETIME ONE Stop: 07/12/16 08:49 Last Admin: 07/12/16 09:14 Dose: 25 mg - Exam Physical Findings Comments:: Exam: -Breathing irregular but not labored -Tachycardia of 150 with flow murmur -Color poor, oximetry about 70% - Problem List Review Problem List Initiated/Reviewed/Updated: Yes - Assessment Assessment:: Impression: -Terminal kidney failure and pneumonia - Plan Plan:: Plan: -Continue present comfort regimen
--- NOTE | 2016-07-14 18:04 | PCM.DCSUM1 ---
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 Treatment and Course in Hospital: He was started on IV Zosyn, got D5 with 0.45% saline and was kept NPO. Blood cultures done which were negative. On the second hospital day he was able to start taking enough fluid to get some of his medications, including Depakote (now in Sprinkles form), DDAVP, increased to 0.2 mg BID. He did not respond to the DDAVP, nor to switching his IV to D5W, and his Na+ barbie to 177 and then 181. He was able to switch from BiPAP to high flow oxygen by mask at 15 L/min, but then his respiratory distress worsened also and CXR 2 days after admission was not improved. He was seen in consult by Dr. Johnston, Internal Medicine, and she felt that because of his underlying chronic kidney disease that his prognosis was indeed terminal without dialysis, which everyone agreed was inappropriate for him. Family agreed with Comfort Care status and he was switched to this on 07/13, continued to deteriorate and became more lethargic and febrile, at 1212 hr on 07/14/16. In his last hours he had Dilaudid and Ativan p.r.n. agitation, and was comfortable, family present at his . - Discharge Data Discharge Date: 07/14/16 Discharge Disposition: 20 Preliminary Cause of *Q: Respiratory failure Condition: Poor - Discharge Plan Home Medications: Home Meds Acetaminophen [Tylenol] 650 mg PO Q4H PRN 04/24/16 [History] Bisacodyl [Dulcolax] 5 mg PO DAILY PRN 04/24/16 [History] Oxybutynin 5 mg PO DAILY 04/24/16 [History] Propranolol HCl [Propranolol] 10 mg PO QID 04/24/16 [History] Calcium Carbonate [Tums] 1,000 mg PO QID PRN 05/18/16 [History] Multivit-Min/FA/Lycopene/Lut [Centrum Silver Tablet] 1 tab PO DAILY 05/18/16 [ History] Polyethylene Glycol 3350 [MiraLAX] 17 gm PO DAILY 05/18/16 [History] Terbinafine [LamISIL AT 1% Crm] 0.5 gm TOP BID PRN 05/18/16 [History] guaiFENesin [Adult Tussin Chest Congestion] 200 mg PO Q4HR PRN 05/18/16 [History ] OLANZapine [ZyPREXA] 5 mg PO BID 06/26/16 [History] Divalproex Sodium 750 mg PO BIDMEALS tab.cr 06/30/16 [Rx] Sertraline [Zoloft] 50 mg PO DAILY 07/07/16 [History] Patient Handouts: Aspiration Pneumonia Forms: ED Department Discharge Referrals: PCP,Unobtain [Ordering Only Provider] - - Patient Data Vitals - Most Recent: Last Vital Signs Temp 37.7 C 07/14/16 09:36 Pulse 123 H 07/14/16 08:36 Resp 12 07/14/16 08:36 BP 120/68 07/13/16 08:15 Pulse Ox 72 L 07/14/16 08:36 Weight - Most Recent: 101.659 kg I&O - Last 24 hours: Intake & Output 07/14/16 07/14/16 07/14/16 06:59 14:59 22:59 Output Total 250 Balance -250 Med Orders - Current: Current Medications Discontinued Medications Acetaminophen (Tylenol) 650 mg RECTAL NOW ONE Stop: 07/07/16 03:54 Last Admin: 07/07/16 04:40 Dose: 650 mg Acetaminophen (Tylenol) 650 mg RECTAL Q4H PRN PRN Reason: analgesia/fever Last Admin: 07/14/16 08:31 Dose: 650 mg Albuterol (Proventil Neb Soln) 2.5 mg NEB Q2H PRN PRN Reason: Shortness of Breath Last Admin: 07/07/16 08:49 Dose: 2.5 mg Albuterol/Ipratropium (Duoneb 3.0-0.5 Mg/3 Ml) 3 ml NEB Q2H PRN PRN Reason: Shortness of Breath Albuterol/Ipratropium (Duoneb 3.0-0.5 Mg/3 Ml) 3 ml NEB Q6HRRT [facility] Last Admin: 07/12/16 13:45 Dose: Not Given Artificial Tears (Tears Naturale Free) 0 each EYEBOTH ASDIRECTED PRN PRN Reason: DRY EYES/COMFORT Atropine Sulfate (Atropine) 0.4 - 1 mg SUBCUT Q3H PRN PRN Reason: COPIOUS SECRETIONS Last Admin: 07/13/16 18:30 Dose: 1 mg Atropine Sulfate (Isopto Atropine 1% Ophth Soln) 0.4 - 1 ml SL Q3H PRN PRN Reason: COPIOUS SECRETIONS Ceftriaxone Sodium (Rocephin) 1 gm IVPUSH ONETIME ONE Stop: 07/07/16 04:20 Last Admin: 07/07/16 04:26 Dose: 1 gm Desmopressin Acetate (Desmopressin) 0.2 mg PO BID [facility] Last Admin: 07/12/16 08:24 Dose: 0.2 mg Divalproex Sodium (Divalproex Sodium) 750 mg PO BIDMEALS [facility] Last Admin: 07/09/16 11:49 Dose: Not Given Divalproex Sodium (Depakote Sprinkle) 750 mg PO BIDMEALS [facility] Last Admin: 07/14/16 07:39 Dose: Not Given Heparin Sodium (Porcine) (Heparin Sodium) 5,000 units SUBCUT Q8H [facility] Last Admin: 07/12/16 08:21 Dose: 5,000 units Hydromorphone HCl (Dilaudid) 1 mg IVPUSH Q2H PRN PRN Reason: Pain Last Admin: 07/14/16 08:28 Dose: 1 mg Sodium Chloride (Normal Saline) 1,000 mls [facility] Last Admin: 07/07/16 04:05 Dose: 100 mls/hr Sodium Chloride (Sodium Chloride 0.45%) 1,000 mls @ 100 [facility] Last Admin: 07/07/16 16:15 Dose: 100 mls/hr Piperacillin Sod/Tazobactam (Sod 4.5 gm/ Sodium Chloride) 100 mls @ 200 mls/hr IV ONETIME ONE Stop: 07/07/16 08:29 Last Admin: 07/07/16 09:26 Dose: 200 mls/hr Piperacillin Sod/Tazobactam (Sod 3.375 gm/ Sodium Chloride) 100 mls @ 25 mls/ hr IV Q8H [facility] Last Admin: 07/12/16 08:24 Dose: 25 mls/hr Dextrose/Sodium Chloride (Dextrose 5%-1/2 Ns) 1,000 mls @ 50 mls/hr IV ASDIRECTED [facility] Last Admin: 07/11/16 08:09 Dose: 125 mls/hr Dextrose/Water (Dextrose 5% In Water) 1,000 mls @ 75 mls/hr IV ASDIRECTED [facility] Last Admin: 07/12/16 12:24 Dose: 75 mls/hr Insulin Aspart (Novolog) 5 unit SUBCUT ONETIME ONE Stop: 07/12/16 08:36 Last Admin: 07/12/16 09:14 Dose: 5 units Lorazepam (Ativan) 0.5 mg IVPUSH Q12H [facility] Last Admin: 07/12/16 15:00 Dose: Not Given Lorazepam (Ativan) 0.5 mg IVPUSH Q6H [facility] Last Admin: 07/14/16 08:22 Dose: 0.5 mg Lorazepam (Ativan) 0.5 - 1 mg PO Q4H PRN PRN Reason: RESTLESSNESS/ANXIETY Last Admin: 07/13/16 06:16 Dose: 1 mg Lorazepam (Ativan) 2 mg IVPUSH ONETIME PRN PRN Reason: Seizures Last Admin: 07/13/16 18:30 Dose: 2 mg Methylprednisolone Sodium Succinate (Solu-Medrol) 125 mg IVPUSH ONETIME ONE Stop: 07/07/16 03:51 Last Admin: 07/07/16 04:23 Dose: 125 mg Methylprednisolone Sodium Succinate (Solu-Medrol) 125 mg IVPUSH Q12H [facility] Last Admin: 07/11/16 08:03 Dose: 125 mg Artificial Saliva 0 each PO ASDIRECTED PRN PRN Reason: DRY MOUTH/COMFORT Ondansetron HCl (Zofran Odt) 4 mg PO Q4H PRN PRN Reason: NAUSEA Ondansetron HCl (Zofran) 4 mg IV Q4H PRN PRN Reason: NAUSEA Sertraline HCl (Zoloft) 50 mg PO DAILY [facility] Last Admin: 07/14/16 07:40 Dose: Not Given Sodium Chloride (Saline Flush) 10 ml FLUSH ASDIRECTED PRN PRN Reason: Keep Vein Open Spironolactone (Aldactone) 25 mg PO ONETIME ONE Stop: 07/12/16 08:49 Last Admin: 07/12/16 09:14 Dose: 25 mg *Q Meaningful Use (DIS) - VTE *Q VTE Criteria *Q: - Stroke *Q Stroke Criteria *Q: - AMI *Q AMI Criteria *Q:
== END 2016-07-14 12:12 | disposition expired | DRG 189 ==
LOC: VM.ED 03:35 → VM.MS 04:30
PROVIDERS: ADMIT Family Medicine; ATTEND Family Medicine
DX: J96.01 Acute respiratory failure with hypoxia (principal); J69.0 Pneumonitis due to inhalation of food and vomit; R09.02 Hypoxemia; G82.50 Quadriplegia, unspecified; N17.9 Acute kidney failure, unspecified; N18.4 Chronic kidney disease, stage 4 (severe); E23.2 Diabetes insipidus; Z87.891 Personal history of nicotine dependence; D64.9 Anemia, unspecified; Z87.820 Personal history of traumatic brain injury; F20.9 Schizophrenia, unspecified; F41.9 Anxiety disorder, unspecified; R32 Unspecified urinary incontinence; H91.90 Unspecified hearing loss, unspecified ear; K59.00 Constipation, unspecified; S14.109S Unspecified injury at unspecified level of cervical spinal cord, sequela; X58.XXXS Exposure to other specified factors, sequela; R13.10 Dysphagia, unspecified; Z79.899 Other long term (current) drug therapy; Z96.649 Presence of unspecified artificial hip joint; Z91.048 Other nonmedicinal substance allergy status; Z66 Do not resuscitate; Z51.5 Encounter for palliative care; F31.9 Bipolar disorder, unspecified
CPT/HCPCS: 36415; 71010; 80053; 83605; 85025; 87040 ×2; 96374; 96375; 99285 ×2; J0696; J2930; J7030; 36600; 80048; 82803; 82962; 83935; 94640; 94640-76; 94660; 94760; A9270-GY; J0461; J1170; J1644; J1815-GY; J2060; J2543; J7042; J7050; J7060; J7620-GY